=== PATIENT | female | born 1985 | race Caucasian/White ===

== ENCOUNTER 2016-08-11 00:31 | Emergency (ER) | payer SELFPAY ==
[~2016-08-11] VITALS: Ht 172.7 cm; Wt 71.0 kg
[2016-08-11 00:45] VITALS: BP 125/85; PULSE 85; RESP 16; O2SAT 100
== END 2016-08-11 01:30 | disposition left against medical advice (07) ==
LOC: NED 00:31
DX: M25.551 Pain in right hip (principal)
CPT/HCPCS: 99281

== ENCOUNTER 2016-09-19 18:48 | Emergency (ER) | payer SELFPAY ==
[~2016-09-19] VITALS: Ht 172.7 cm; Wt 70.5 kg
[2016-09-19 18:49] VITALS: BP 119/72; PULSE 106; RESP 15; TEMP 98.2; O2SAT 98
[2016-09-19 19:23] VITALS: TEMP 98.4
[2016-09-19] MEDS ORDERED: CLINDAMYCIN 150 MG CAP PO ONE (19:30)
[2016-09-19] MEDS ORDERED: CLIN1CAP5 PO (19:32)
--- NOTE | 2016-09-19 19:34 | PD ---
HPI Chief Complaint: Skin Problem Time Seen by Provider: 19:28 Travel History International Travel<30 days: No Contact w/Intl Traveler<30days: No Traveled to known affect area: No History of Present Illness HPI 30-year-old female presents to the emergency department for medical clearance from [facility]. Patient reports being IV drug user for 2.5-3 years. She states uses IV heroin and cocaine. Patient states that she started with some erythema to the right arm yesterday that has been worsening. She denies any fevers or chills. She has no chronic medical problems and takes no prescribed medications. No chest pain. PFSH Past Medical History ?: Not Past Surgical History Other Surgery: Yes (wisdom teeth removed) Social History Alcohol Use: Yes (daily beer) Tobacco Use: Yes (1ppd) Substance Use: Yes (cocaine and heroin iv drug use) Allergies-Medications (Allergen,Severity, Reaction): Coded Allergies: No Known Allergies (Unverified , 09/19/16) Reported Meds & Prescriptions Reported Meds & Active Scripts Active No Active Prescriptions or Reported Medications Review of Systems Except as stated in HPI: all other systems reviewed are Neg Physical Exam Narrative GENERAL: Well-developed well-nourished female patient, ambulatory. Afebrile. SKIN: Warm and dry. Patient has multiple scabs noted to the right upper extremity. She has erythema on the right for the patient is approximately 16 cm x 6 cm. No fluctuance or evidence of abscess formation. No edema of the right arm noted. HEAD: Normocephalic. Atraumatic. EYES: No scleral icterus. No injection or drainage. NECK: Supple, trachea midline. No JVD or lymphadenopathy. CARDIOVASCULAR: Regular rate and rhythm without murmurs, gallops, or rubs. RESPIRATORY: Breath sounds equal bilaterally. No accessory muscle use. Lungs sounds are clear to auscultation. GASTROINTESTINAL: Abdomen soft, non-tender, nondistended. MUSCULOSKELETAL: No cyanosis. BACK: Nontender without obvious deformity. No CVA tenderness. Data Data Last Documented VS Vital Signs Date Time Temp Pulse Resp B/P Pulse Ox O2 Delivery O2 Flow Rate FiO2 09/19/16 19:23 98.4 09/19/16 18:49 106 15 119/72 98 Orders Clindamycin (Cleocin) (09/19/16 19:30) [facility] Medical Decision Making Medical Screen Exam Complete: Yes Emergency Medical Condition: Yes Medical Record Reviewed: Yes Differential Diagnosis Cellulitis versus abscess versus IV drug use Narrative Course 30-year-old female presents to the emergency department for medical clearance from [facility]. She reports redness to the right upper extremity that started yesterday after IV drug use. Physical exam reveals an approximately 16 cm x 6 cm area of erythema to the right anterior forearm with no evidence of abscess formation. She is afebrile and appears well on exam. The patient will be started on clindamycin and discharged with a prescription for clindamycin. She is instructed to monitor closely and if the erythema spreads, she has fevers , or any other worsening symptoms, she is to return immediately to the emergency department. The patient verbalizes agreement and understanding. Diagnosis Primary Impression: Cellulitis of right upper extremity Additional Impression: IV drug abuse Referrals: Primary Care Physician [facility] Patient Instructions: Cellulitis (ED), General Instructions Additional Instructions: Take antibiotic as directed until gone. If you do not have insurance, this is cheapest at [facility]. Clean right arm twice daily with soap and water. Follow up with your primary care physician. Return to the emergency department immediately if you notice any worsening redness, fevers, abscess formation. Med/Other Pt SpecificInfo: Prescription(s) given Scripts Clindamycin 150 Mg [id number] Mg PO Q6H 10 Days Ref 0 Prov:Uzma Patel 09/19/16 Disposition: 01 DISCHARGE HOME Condition: Stable Uzma Patel Sep 19, 2016 19:34
== END 2016-09-19 19:53 | disposition home or self-care (01) ==
LOC: NEPC 18:48
DX: L03.113 Cellulitis of right upper limb (principal); F19.10 Other psychoactive substance abuse, uncomplicated; F17.200 Nicotine dependence, unspecified, uncomplicated
CPT/HCPCS: 99283

== ENCOUNTER 2016-09-21 12:24 | Inpatient (IN) | payer SELFPAY ==
[2016-09-21] VITALS (7 sets, daily range): BP systolic 106–116; BP diastolic 55–66; PULSE 78–96; RESP 16–20; TEMP 98.3–100.4; O2SAT 96–98
[~2016-09-21] VITALS: Ht 172.7 cm; Wt 72.8 kg
[~2016-09-21 12:24] MED LIST: CLIN1CAP5 PO
[2016-09-21] MEDS ORDERED: PIPERACIL-TAZO 3.375 GM PREMIX 50 ML IV ONE (12:45)
[2016-09-21] MEDS ORDERED: VANCOMYCIN INJ 1,000 MG in SODIUM CHLOR 0.9% 250 ML INJ 250 ML IV ONE (12:45)
[2016-09-21] MEDS ORDERED: KETOROLAC TROMETHAMINE 30 MG/ML (IVP) VIAL IV PUSH ONE (12:45)
--- NOTE | 2016-09-21 13:00 | PD ---
HPI Chief Complaint: cellulitis Time Seen by Provider: 12:32 Travel History International Travel<30 days: No Contact w/Intl Traveler<30days: No Traveled to known affect area: No History of Present Illness HPI 30-year-old female complaining of pain swelling right arm. Patient has history of IV drug abuse. Patient has been shooting up cocaine or heroin. Last IV drug abuse was 2 days ago. Patient started having redness swelling with pain in the right arm 4 days ago and the symptoms get worse for the past 2 days. Patient was seen in emergency room 2 days ago and given prescription for clindamycin. Patient has been taking that as directed. Patient was admitted to [facility] and was given Septra DS and Keflex addition to clindamycin. Patient however has persistent fever and increasing pain and swelling of the right arm and was transferred to [place] for evaluation. [facility] Past Surgical History Other Surgery: Yes (wisdom teeth removed) Social History Alcohol Use: Yes (daily beer) Tobacco Use: Yes (1ppd) Substance Use: Yes (cocaine and heroin iv drug use) Allergies-Medications (Allergen,Severity, Reaction): Coded Allergies: No Known Allergies (Unverified , 09/19/16) Reported Meds & Prescriptions Reported Meds & Active Scripts Active Clindamycin (Clindamycin HCl) 150 Mg Cap 300 Mg PO Q6H 10 Days Review of Systems General / Constitutional: No: Fever Eyes: No: Visual changes HENT: No: Headaches Cardiovascular: No: Chest Pain or Discomfort Respiratory: No: Shortness of Breath Gastrointestinal: No: Abdominal Pain Genitourinary: No: Dysuria Musculoskeletal: Positive: Pain Skin: No Rash Neurologic: No: Weakness Psychiatric: No: Depression Endocrine: No: Polydipsia Hematologic/Lymphatic: No: Easy Bruising Physical Exam Narrative GENERAL: Well-nourished, well-developed patient. SKIN: Warm and dry. HEAD: Normocephalic. EYES: No scleral icterus. No injection or drainage. NECK: Supple, trachea midline. No JVD or lymphadenopathy. CARDIOVASCULAR: Regular rate and rhythm without murmurs, gallops, or rubs. RESPIRATORY: Breath sounds equal bilaterally. No accessory muscle use. GASTROINTESTINAL: Abdomen soft, non-tender, nondistended. MUSCULOSKELETAL: Patient has diffuse redness swelling tenderness right arm and antecubital area and forearm. Questionable induration antecubital area. Infected lesion dorsal aspect right hand. BACK: Nontender without obvious deformity. No CVA tenderness. Neurologic exam: Patient's awake and alert oriented 3. No obvious focal neurological deficit. Data Data Last Documented VS Vital Signs Date Time Temp Pulse Resp B/P Pulse Ox O2 Delivery O2 Flow Rate FiO2 09/21/16 12:50 100.4 95 20 106/58 98 Room Air Orders Consult Vascular Access Team (09/21/16 ) Electrocardiogram (09/21/16 12:44) Complete Blood Count With Diff (09/21/16 12:44) Comprehensive Metabolic Panel (09/21/16 12:44) Prothrombin Time / Inr (Pt) (09/21/16 12:44) Act Partial Throm Time (Ptt) (09/21/16 12:44) Blood Culture (09/21/16 12:44) Urinalysis - C+S If Indicated (09/21/16 12:44) Chest, Single Ap (09/21/16 12:44) Iv Access Insert/Monitor (09/21/16 12:44) Ecg Monitoring (09/21/16 12:44) Oximetry (09/21/16 12:44) Drug Screen, Random Urine (09/21/16 12:44) Ed Urine Pregnancytest Poc (09/21/16 12:44) Sodium Chlor 0.9% 1000 Ml Inj (Ns 1000 M (09/21/16 12:45) Vancomycin Inj (Vancomycin Inj) (09/21/16 12:45) Piperacil-Tazo 3.375 Gm Premix (Zosyn 3. (09/21/16 12:45) Ketorolac Inj (Toradol Inj) (09/21/16 12:45) Lactic Acid (09/21/16 12:48) Us Arm Soft Tissue (09/21/16 ) Vascular Poc Ultrasound (09/21/16 ) Labs Laboratory Tests Test 09/21/16 09/21/16 13:15 13:30 Lactic Acid Level 0.8 mmol/L White Blood Count 18.7 TH/MM3 Red Blood Count 4.21 MIL/MM3 Hemoglobin 11.7 GM/DL Hematocrit 35.6 % Mean Corpuscular Volume 84.6 FL Mean Corpuscular Hemoglobin 27.8 PG Mean Corpuscular Hemoglobin 32.8 % Concent Red Cell Distribution Width 15.9 % Platelet Count 353 TH/MM3 Mean Platelet Volume 7.8 FL Neutrophils (%) (Auto) 79.9 % Lymphocytes (%) (Auto) 13.7 % Monocytes (%) (Auto) 5.8 % Eosinophils (%) (Auto) 0.0 % Basophils (%) (Auto) 0.6 % Neutrophils # (Auto) 14.9 TH/MM3 Lymphocytes # (Auto) 2.6 TH/MM3 Monocytes # (Auto) 1.1 TH/MM3 Eosinophils # (Auto) 0.0 TH/MM3 Basophils # (Auto) 0.1 TH/MM3 CBC Comment DIFF FINAL Differential Comment Prothrombin Time 13.0 SEC Prothromb Time International 1.2 RATIO Ratio Activated Partial 33.5 SEC Thromboplast Time Sodium Level 140 MEQ/L Potassium Level 3.5 MEQ/L Chloride Level 107 MEQ/L Carbon Dioxide Level 24.2 MEQ/L Anion Gap 9 MEQ/L Blood Urea Nitrogen 8 MG/DL Creatinine 0.78 MG/DL Estimat Glomerular Filtration 87 ML/MIN Rate Random Glucose 104 MG/DL Calcium Level 8.9 MG/DL Total Bilirubin 0.4 MG/DL Aspartate Amino Transf 17 U/L (AST/SGOT) Alanine Aminotransferase 27 U/L (ALT/SGPT) Alkaline Phosphatase 101 U/L Total Protein 7.5 GM/DL Albumin 2.7 GM/DL [facility] Medical Decision Making Medical Screen Exam Complete: Yes Emergency Medical Condition: Yes Medical Record Reviewed: Yes Interpretation(s) Last Impressions Chest X-Ray 09/21/16 1244 Signed Impressions: Service Date/Time: Wednesday, September 21, 2016 13:24 - CONCLUSION: Normal examination. Zack Corea Jr., MD Upper Extremity Ultrasound 09/21/16 0000 Signed Impressions: Service Date/Time: Wednesday, September 21, 2016 13:31 - CONCLUSION: Small 1 cm complex fluid collection hypoechoic right anterior midforearm contiguous with open skin wound. Extensive surrounding edema and hypervascularity Jerzy Handy MD 1409 p.m. CBC with WBC 18,000. 79 neutrophil. Differential Diagnosis Differential diagnosis including cellulitis, abscess. Narrative Course 30-year-old female with redness swelling tenderness right arm. History IV drug abuse. Patient has been taking clindamycin 300 mg, Bactrim DS and Keflex 500 mg without much relief. Vancomycin 1 g IV. Zosyn 3.375 g IV. Toradol 30 mg IV. Diagnosis Primary Impression: Right arm cellulitis Additional Impressions: Abscess of right arm IV drug abuse Failure of outpatient treatment Admitting Information Admitting Physician Requests: Admit George Nino MD Sep 21, 2016 13:00
--- NOTE | 2016-09-21 13:41 | RADRPT ---
EXAM DATE/TIME: 09/21/2016 13:24 [facility] COMPARISON: No previous studies available for comparison. INDICATIONS : Fever for three days, abdominal pain, short of breath. MEDICAL HISTORY : None. SURGICAL HISTORY : None. ENCOUNTER: Initial ACUITY: 3 days PAIN SCORE: Non-responsive. LOCATION: Bilateral chest FINDINGS: A single view of the chest demonstrates the lungs to be symmetrically aerated without evidence of mas s, infiltrate or effusion. The cardiomediastinal contours are unremarkable. Osseous structures are intact. CONCLUSION: Normal examination. Zack Corea Jr., MD on September 21, 2016 at 13:39 Board Certified Radiologist. This report was verified electronically.
--- NOTE | 2016-09-21 14:00 | RADRPT ---
EXAM DATE/TIME: 09/21/2016 13:31 [facility] COMPARISON: No previous studies available for comparison. INDICATIONS : Right arm abscess. MEDICAL HISTORY : IV drug use. Anxiety. SURGICAL HISTORY : [place] teeth removed. ENCOUNTER: Initial ACUITY: 2 days PAIN SCORE: 3/10 LOCATION: Right arm. AREA EVALUATED: Right anterior mid forearm. FINDINGS: There is a small 1.0 cm hypoechoic complex fluid collection right anterior midforearm which is contig uous with an open skin wound. Surrounding edema is noted in the soft tissues with a hypervascular inc reased CONCLUSION: Small 1 cm complex fluid collection hypoechoic right anterior midforearm contiguous with open skin wo und. Extensive surrounding edema and hypervascularity Jerzy Handy MD on September 21, 2016 at 13:57 Board Certified Radiologist. This report was verified electronically.
[2016-09-21 14:04] LABS: AUTOMATED NEUTROPHIL # 14.9 TH/MM3 (1.8-7.7); BASOPHIL # 0.1 TH/MM3 (0-0.2); BASOPHIL % 0.6 % (0.0-2.0); HEMATOCRIT 35.6 % (35.0-46.0); HEMO FLAGS DIFF FINAL; LYMPH % 13.7 % (9.0-44.0); LYMPHOCYTE # 2.6 TH/MM3 (1.0-4.8); MEAN CELL VOLUME 84.6 FL (80.0-100.0); MEAN CORPUSCULAR HEMOGLOBIN 27.8 PG (27.0-34.0); MEAN CORPUSCULAR HGB CONC 32.8 % (32.0-36.0); MONO % 5.8 % (0.0-8.0); NEUT % 79.9 % (16.0-70.0); PLATELET COUNT 353 TH/MM3 (150-450); RED BLOOD COUNT 4.21 MIL/MM3 (4.00-5.30); RED CELL DISTRIBUTION WIDTH 15.9 % (11.6-17.2); WHITE BLOOD COUNT 18.7 TH/MM3 (4.0-11.0)
[2016-09-21 14:20] LABS: ALT (GPT) 27 U/L (10-53); ANION GAP 9 MEQ/L (5-15); APTT (PATIENT) 33.5 SEC (24.3-30.1); AST (GOT) 17 U/L (15-37); BICARBONATE 24.2 MEQ/L (21.0-32.0); BLOOD UREA NITROGEN 8 MG/DL (7-18); CHLORIDE 107 MEQ/L (98-107); GLOMERULAR FILTRATION RATE 87 ML/MIN (>89); INTERNATIONAL NORMALIZED RATIO 1.2 RATIO; POTASSIUM 3.5 MEQ/L (3.5-5.1); SODIUM (NA) 140 MEQ/L (136-145)
[2016-09-21 14:22] LABS: ALKALINE PHOSPHATASE 101 U/L (45-117); TOTAL BILIRUBIN ADULT 0.4 MG/DL (0.2-1.0)
[2016-09-21] MEDS: SODIUM CHLOR 0.9% 1000 ML INJ 1,000 ML IV SCH ×2 (14:45→21:56)
--- NOTE | 2016-09-21 14:49 | HHI.HP ---
[facility] Primary Care Physician No Primary Care Physician Admission Diagnosis right arm cellulitis. Right arm abscess. Diagnoses: (1) Abscess of right arm (2) Right arm cellulitis (3) IV drug abuse (4) Failure of outpatient treatment Chief Complaint: Cellulitis Travel History International Travel<30 Days: No Contact w/Intl Traveler <30 Da: No Traveled to Known Affected Are: No Sepsis Criteria SIRS Criteria (2 or more): Heart rate over 90, WBC > 10075, < 4000 or > 10% bands Sepsis Criteria (SIRS+source): Infect source susp/known History of Present Illness The patient is a 30-year-old female with history of IV drug abuse who presented to the emergency department from [facility] for further evaluation and treatment of cellulitis and possible abscess of her right forearm. She admits to using heroin most recently on Wednesday. On the same day she voluntarily was admitted to [facility]. She was seen in the ER 2 days ago and given clindamycin for the cellulitis. Bactrim and Keflex were added at [facility]. She has not had any improvement in the pain or erythema of the right forearm. She states that she feels "terrible". She is currently going through withdrawal from opiates. Review of Systems Constitutional: COMPLAINS OF: Fever, Chills, Night Sweats Eyes: DENIES: Blurred vision, Vision loss Ears, nose, mouth, throat: DENIES: Hearing loss Respiratory: DENIES: Cough, Wheezing, Sputum production, Shortness of breath Cardiovascular: DENIES: Chest pain, Palpitations, Dyspnea on Exertion, Lower Extremity Edema Gastrointestinal: DENIES: Abdominal pain, Constipation, Diarrhea, Nausea, Vomiting Genitourinary: DENIES: Urinary frequency, Urinary incontinence, Urgency, Hematuria, Dysuria, Nocturia Musculoskeletal: DENIES: Joint pain, Muscle aches Integumentary: DENIES: Pruritus, Rash Hematologic/lymphatic: DENIES: Bruising Neurologic: DENIES: Headache Past Family Social History Past Medical History IV drug abuse Past Surgical History [place] teeth removed Reported Medications Clindamycin Bactrim Keflex Allergies: Coded Allergies: No Known Allergies (Unverified , 09/19/16) Family History Parkinson's disease Alzheimer's disease Social History Patient drinks beer daily. Smokes 1ppd. Admits to cocaine and heroin abuse. Physical Exam Vital Signs Vital Signs Date Time Temp Pulse Resp B/P Pulse Ox O2 Delivery O2 Flow Rate FiO2 09/21/16 12:50 100.4 95 20 106/58 98 Room Air 09/21/16 12:50 100.4 95 20 106/58 98 Room Air 09/21/16 12:50 95 20 09/21/16 12:41 100.4 20 Physical Exam GENERAL: Well-nourished, well-developed female in no acute distress. HEENT: Normocephalic, atraumatic. Pupils equal, round and reactive. Extraocular movements intact. No scleral icterus. No injection or drainage. Oropharynx is clear. Mucous membranes are moist. CARDIOVASCULAR: Regular rate and rhythm without murmurs, gallops, or rubs. RESPIRATORY: Clear to auscultation. No wheezes, rales, or rhonchi. Breathing is non-labored. GASTROINTESTINAL: Abdomen soft, non-tender, nondistended. EXTREMITIES: No lower extremity edema. No calf tenderness. Right forearm with erythema extending from the elbow to just proximal to the wrist. There is a scabbed lesion with surrounding induration and erythema. PSYCH: Alert and oriented x 3. Laboratory Laboratory Tests Test 09/21/16 09/21/16 13:15 13:30 Lactic Acid Level 0.8 White Blood Count 18.7 Red Blood Count 4.21 Hemoglobin 11.7 Hematocrit 35.6 Mean Corpuscular Volume 84.6 Mean Corpuscular Hemoglobin 27.8 Mean Corpuscular Hemoglobin 32.8 Concent Red Cell Distribution Width 15.9 Platelet Count 353 Mean Platelet Volume 7.8 Neutrophils (%) (Auto) 79.9 Lymphocytes (%) (Auto) 13.7 Monocytes (%) (Auto) 5.8 Eosinophils (%) (Auto) 0.0 Basophils (%) (Auto) 0.6 Neutrophils # (Auto) 14.9 Lymphocytes # (Auto) 2.6 Monocytes # (Auto) 1.1 Eosinophils # (Auto) 0.0 Basophils # (Auto) 0.1 CBC Comment DIFF FINAL Differential Comment Prothrombin Time 13.0 Prothromb Time International 1.2 Ratio Activated Partial 33.5 Thromboplast Time Sodium Level 140 Potassium Level 3.5 Chloride Level 107 Carbon Dioxide Level 24.2 Anion Gap 9 Blood Urea Nitrogen 8 Creatinine 0.78 Estimat Glomerular Filtration 87 Rate Random Glucose 104 Calcium Level 8.9 Total Bilirubin 0.4 Aspartate Amino Transf 17 (AST/SGOT) Alanine Aminotransferase 27 (ALT/SGPT) Alkaline Phosphatase 101 Total Protein 7.5 Albumin 2.7 Date/Time Procedure Status Source Growth 09/21/16 13:30 Aerobic Blood Culture Received Blood Peripheral Pending 09/21/16 13:30 Anaerobic Blood Culture Received Blood Peripheral Pending Result Diagram: 09/21/16 1330 09/21/16 1330 Imaging Last Impressions Chest X-Ray 09/21/16 1244 Signed Impressions: Service Date/Time: Wednesday, September 21, 2016 13:24 - CONCLUSION: Normal examination. Zack Corea Jr., MD Upper Extremity Ultrasound 09/21/16 0000 Signed Impressions: Service Date/Time: Wednesday, September 21, 2016 13:31 - CONCLUSION: Small 1 cm complex fluid collection hypoechoic right anterior midforearm contiguous with open skin wound. Extensive surrounding edema and hypervascularity Jerzy Handy MD Assessment and Plan Assessment and Plan 1. Cellulitis/abscess, right arm: Failed outpatient therapy. Patient was given clindamycin in the ER 2 days ago. Bactrim and Keflex were added at [facility]. Continue vancomycin, Zosyn. Consult infectious disease. Consider hand surgery consult if abscess appears to be worsening. 2. IV drug abuse: Patient has been counseled. Monitor for withdrawal symptoms. 3. DVT prophylaxis: SCDs, BOOM hollise. 4. Sepsis: Secondary to cellulitis. Patient presented with fever, tachycardia, leukocytosis. Continue antibiotics as above. Maxi Streeter MD Sep 21, 2016 14:49
[2016-09-21] MEDS ORDERED: Vancomycin Consult Pharmacy 1 EA OTHER SCH (15:15)
[2016-09-21] MEDS ORDERED: NALOXONE HCL 0.4 MG/ML AMP IV PRN (15:15)
[2016-09-21] MEDS ORDERED: SODIUM CHLORIDE 0.9% FLUSH 5 ML FLUSH FLUSH PRN (15:15)
[2016-09-21] MEDS: PIPERACIL-TAZO 3.375 GM PREMIX 50 ML IV SCH (20:49)
[2016-09-21] MEDS: SODIUM CHLORIDE 0.9% FLUSH 5 ML FLUSH FLUSH SCH (20:50)
[2016-09-21] MEDS ORDERED: THIAMINE HCL 100 MG TAB PO ONE (21:45)
[2016-09-21] MEDS: ACETAMINOPHEN 325 MG TAB PO PRN (22:05)
[2016-09-21 22:16] LABS: AMPHETAMINE, URINE NEG (NEG); BARBITURATES, URINE NEG (NEG); COCAINE, URINE POS (NEG)
[2016-09-21 22:26] LABS: BACTERIA, URINE MOD /hpf; BLOOD, URINE NEG (NEG); COMMENT (UR) CULTURE INDICATED; CULTURE IF INDICATED CULTURE INDICATED; GLUCOSE,URINE NEG (NEG); KETONE, URINE NEG (NEG); MUCUS URINE FEW /lpf (OCC); NITRITE,URINE NEG (NEG); SQUAMOUS EPITHELIAL CELL URINE 7 /hpf (0-5); URINE COLOR YELLOW (YELLW/STRAW)
[2016-09-21] MEDS: LORazepam 2 MG/ML VIAL IV PUSH PRN (22:52)
[2016-09-22] MEDS: PIPERACIL-TAZO 3.375 GM PREMIX 50 ML IV SCH ×4 (02:13→21:38)
[2016-09-22] MEDS: VANCOMYCIN INJ 1,250 MG in SODIUM CHLOR 0.9% 250 ML INJ 250 ML IV SCH ×2 (03:00→15:03)
[2016-09-22 04:05] VITALS: BP 109/64; PULSE 77; RESP 16; TEMP 98.9; O2SAT 98
[2016-09-22] MEDS: SODIUM CHLOR 0.9% 1000 ML INJ 1,000 ML IV SCH ×3 (04:36→20:45)
[2016-09-22] MEDS: LORazepam 2 MG/ML VIAL IV PUSH PRN ×5 (05:30→23:01)
[2016-09-22 07:21] LABS: AUTOMATED NEUTROPHIL # 10.5 TH/MM3 (1.8-7.7); BASOPHIL % 0.2 % (0.0-2.0); EOSINOPHIL % 0.2 % (0.0-4.0); HEMATOCRIT 32.3 % (35.0-46.0); HEMO FLAGS DIFF FINAL; LYMPH % 22.1 % (9.0-44.0); LYMPHOCYTE # 3.3 TH/MM3 (1.0-4.8); MEAN CELL VOLUME 84.8 FL (80.0-100.0); MONO % 8.3 % (0.0-8.0); NEUT % 69.2 % (16.0-70.0); PLATELET COUNT 313 TH/MM3 (150-450); RED BLOOD COUNT 3.81 MIL/MM3 (4.00-5.30); RED CELL DISTRIBUTION WIDTH 15.8 % (11.6-17.2); WHITE BLOOD COUNT 15.2 TH/MM3 (4.0-11.0)
[2016-09-22] MEDS ORDERED: FLUMAZENIL 0.5 MG/5 ML VIAL IV PUSH PRN (07:30)
[2016-09-22] MEDS ORDERED: LORazepam 2 MG/ML VIAL IV PUSH PRN ×3 (07:30)
[2016-09-22 08:00] VITALS: BP 128/67; PULSE 86; RESP 32; TEMP 99.9; O2SAT 97
[2016-09-22] MEDS: SODIUM CHLORIDE 0.9% FLUSH 5 ML FLUSH FLUSH SCH ×2 (08:24→21:00)
[2016-09-22] MEDS: THIAMINE HCL 100 MG TAB PO SCH (08:24)
[2016-09-22] MEDS: ACETAMINOPHEN 325 MG TAB PO PRN ×2 (08:42→16:24)
[2016-09-22] MEDS ORDERED: chlordiazePOXIDE 25 MG CAP PO SCH (09:00)
--- NOTE | 2016-09-22 10:46 | HHI.PR ---
Subjective Remarks Follow-up cellulitis/abscess, sepsis. The patient continues to have significant pain and swelling in the right arm. No other complaints at this time. Objective Vitals Vital Signs Date Time Temp Pulse Resp B/P Pulse Ox O2 Delivery O2 Flow Rate FiO2 09/22/16 10:09 Room Air 09/22/16 08:00 99.9 86 32 128/67 97 09/22/16 04:05 Room Air 09/22/16 04:05 98.9 77 16 109/64 98 09/21/16 23:20 99.6 85 16 116/64 96 09/21/16 23:20 Room Air 09/21/16 21:17 99.9 96 16 107/55 98 09/21/16 21:17 Room Air 09/21/16 17:41 98.8 80 20 112/64 98 09/21/16 16:25 98.3 78 20 114/66 98 Room Air 09/21/16 15:00 20 09/21/16 14:45 99.5 09/21/16 12:50 100.4 95 20 106/58 98 Room Air 09/21/16 12:50 100.4 95 20 106/58 98 Room Air 09/21/16 12:50 95 20 09/21/16 12:41 100.4 20 I/O 09/21/16 09/21/16 09/21/16 09/22/16 09/22/16 09/22/16 07:00 15:00 23:00 07:00 15:00 23:00 Intake Total 480 ml 1228 ml Balance 480 ml 1228 ml Intake Oral 480 ml 240 ml IV Total 988 ml # Voids 1 2 # Bowel Movements 0 0 Result Diagram: 09/22/16 0648 09/22/16 0648 Imaging Last Impressions Chest X-Ray 09/21/16 1244 Signed Impressions: Service Date/Time: Wednesday, September 21, 2016 13:24 - CONCLUSION: Normal examination. Zack Corea Jr., MD Upper Extremity Ultrasound 09/21/16 0000 Signed Impressions: Service Date/Time: Wednesday, September 21, 2016 13:31 - CONCLUSION: Small 1 cm complex fluid collection hypoechoic right anterior midforearm contiguous with open skin wound. Extensive surrounding edema and hypervascularity Jerzy Handy MD Objective Remarks General: No acute distress. Heart: Regular rate and rhythm. No murmur. Lungs: Clear to auscultation bilaterally. No wheezes, rales, or rhonchi. Breathing is nonlabored. Abdomen: Soft, nontender, nondistended. Extremities: No lower extremity edema. BOOM samaniego. There is swelling, erythema, and induration of the right forearm. Psych: Sleeping, but awakens and answers questions. Procedures None Urinary Catheter: No Vascular Central Line Catheter: No A/P Problem List: (1) Abscess of right arm ICD Code: L02.413 Status: Acute (2) Right arm cellulitis ICD Code: L03.113 Status: Acute (3) IV drug abuse ICD Code: F19.10 Status: Chronic (4) Failure of outpatient treatment ICD Code: Z78.9 Status: Acute Assessment and Plan 1. Cellulitis/abscess, right arm: Failed outpatient therapy. Patient was given clindamycin in the ER 2 days ago. Bactrim and Keflex were added at [facility]. Continue vancomycin, Zosyn. Appreciate infectious disease recommendations. Check MRI to further evaluate abscess. Consider hand surgery consult if abscess appears to be worsening. 2. IV drug abuse, alcohol abuse: Patient has been counseled. Monitor for withdrawal symptoms. CIWA protocol. Withdrawal precautions. Thiamine. 3. Sepsis: Secondary to cellulitis. Patient presented with fever, tachycardia, leukocytosis. Continue antibiotics as above. 4. Leukocytosis: WBCs are trending down. 5. DVT prophylaxis: SCDBOOM cordova. Discussed with Dr. Canseco. Maxi Streeter MD Sep 22, 2016 10:46
--- NOTE | 2016-09-22 11:01 | PD.CONS ---
History of Present Illness Service Infectious disease Consult Requested By Dr Dorene Streeter Reason for Consult Evaluate patient with cellulitis R forearm, hx IVDU Primary Care Physician No Primary Care Physician Diagnoses: History of Present Illness Patient seen and examined. Records reviewed. Patient is a 30-year-old female with history of IV drug abuse who presented to the emergency department from [facility] for further evaluation of pain and redness in her R forearm. She last used IVDU in her R forearm 3 days [employer]. She developed redness, pain and swelling, went to the ED 09/19 and diagnosed to have cellulitis. She then went to [facility] voluntarily and continued on her antibiotics. She was not improving, and presented to the emergency room and patient has been admitted. Patient has been febrile. She had a white count of 18,000. One out of 2 blood cultures done on admission are now reported as growing gram-positive cocci in pairs and chains. Patient had some mild sore throat last week but that has resolved. She denies any significant cough, shortness of breath or chest pain. Has not had any nausea or vomiting, abdominal pain, diarrhea or any urinary complaint. Infectious disease consultation is requested to evaluate the patient. Review of Systems Constitutional: COMPLAINS OF: Fever Eyes: DENIES: Eye pain Ears, nose, mouth, throat: DENIES: Nasal discharge, Oral lesions, Throat pain, Ear Pain, Sinus Pain Respiratory: DENIES: Cough, Sputum production, Shortness of breath Cardiovascular: DENIES: Chest pain, Palpitations, Syncope Gastrointestinal: DENIES: Abdominal pain, Diarrhea, Nausea, Vomiting, Difficulty Swallowing Genitourinary: DENIES: Urinary frequency, Dysuria Musculoskeletal: COMPLAINS OF: Muscle aches, DENIES: Joint pain, Joint Swelling Hematologic/lymphatic: DENIES: Bruising Immunologic/allergic: DENIES: Urticaria Neurologic: DENIES: Headache, Localized weakness Psychiatric: DENIES: Hallucinations Past Family Social History Allergies: Coded Allergies: No Known Allergies (Unverified , 09/19/16) Past Medical History History of IV drug use Past Surgical History [place] tooth extraction Active Ordered Medications Tylenol Flumazenil Ativan Vancomycin Zosyn Zofran Thiamine Social History Has a boyfriend, shares needles with the boyfriend Patient drinks beer daily. Smokes 1ppd. Admits to cocaine and heroin abuse. Physical Exam Vital Signs Vital Signs Date Time Temp Pulse Resp B/P Pulse Ox O2 Delivery O2 Flow Rate FiO2 09/22/16 10:09 Room Air 09/22/16 08:00 99.9 86 32 128/67 97 09/22/16 04:05 Room Air 09/22/16 04:05 98.9 77 16 109/64 98 09/21/16 23:20 99.6 85 16 116/64 96 09/21/16 23:20 Room Air 09/21/16 21:17 99.9 96 16 107/55 98 09/21/16 21:17 Room Air 09/21/16 17:41 98.8 80 20 112/64 98 09/21/16 16:25 98.3 78 20 114/66 98 Room Air 09/21/16 15:00 20 09/21/16 14:45 99.5 09/21/16 12:50 100.4 95 20 106/58 98 Room Air 09/21/16 12:50 100.4 95 20 106/58 98 Room Air 09/21/16 12:50 95 20 09/21/16 12:41 100.4 20 Physical Exam GENERAL: This is a well-nourished, well-developed female, awake and alert, in no apparent distress. SKIN: Cool and dry. Has track hill both UE. Has excoriations in her face HEAD: Atraumatic. Normocephalic. No temporal or scalp tenderness. EYES: [place] conjunctivae, no petechia or hemorrhage. Pupils equal round and reactive. Extraocular motions intact. No scleral icterus. No injection or drainage. ENT: Nose without bleeding, or purulent drainage. Moist oral mucosa. Throat without erythema, or exudate. Uvula midline. Airway patent. NECK: Trachea midline. No JVD or lymphadenopathy. Supple, nontender, no meningeal signs. CARDIOVASCULAR: Regular rate and rhythm without murmurs, gallops, or rubs. RESPIRATORY: Clear to auscultation. Breath sounds equal bilaterally. No wheezes , rales, or rhonchi. GASTROINTESTINAL: Abdomen soft, non-tender, nondistended. No hepato-splenomegaly , or palpable masses. No guarding. MUSCULOSKELETAL: Lower extremities without clubbing, cyanosis, or edema. No joint tenderness, effusion, or edema noted. No calf tenderness. Negative Homans sign bilaterally. RUE - has an area of erythema distal to antecub fossa, possibly a tender palpable cord, no fluctuance NEUROLOGICAL: Awake and alert. Cranial nerves II through XII intact. Motor and sensory grossly within normal limits. Five out of 5 muscle strength in all muscle groups. Normal speech. PSYCH: Cooperative LINE: PIV with no evidence of infection Laboratory Laboratory Tests Test 09/21/16 09/21/16 09/21/16 09/22/16 13:15 13:30 21:30 06:48 Lactic Acid Level 0.8 White Blood Count 18.7 15.2 Red Blood Count 4.21 3.81 Hemoglobin 11.7 10.7 Hematocrit 35.6 32.3 Mean Corpuscular Volume 84.6 84.8 Mean Corpuscular Hemoglobin 27.8 28.0 Mean Corpuscular Hemoglobin 32.8 33.0 Concent Red Cell Distribution Width 15.9 15.8 Platelet Count 353 313 Mean Platelet Volume 7.8 7.5 Neutrophils (%) (Auto) 79.9 69.2 Lymphocytes (%) (Auto) 13.7 22.1 Monocytes (%) (Auto) 5.8 8.3 Eosinophils (%) (Auto) 0.0 0.2 Basophils (%) (Auto) 0.6 0.2 Neutrophils # (Auto) 14.9 10.5 Lymphocytes # (Auto) 2.6 3.3 Monocytes # (Auto) 1.1 1.3 Eosinophils # (Auto) 0.0 0.0 Basophils # (Auto) 0.1 0.0 CBC Comment DIFF FINAL DIFF FINAL Differential Comment Prothrombin Time 13.0 Prothromb Time International 1.2 Ratio Activated Partial 33.5 Thromboplast Time Sodium Level 140 Potassium Level 3.5 Chloride Level 107 Carbon Dioxide Level 24.2 Anion Gap 9 Blood Urea Nitrogen 8 Creatinine 0.78 0.84 Estimat Glomerular Filtration 87 80 Rate Random Glucose 104 Calcium Level 8.9 Total Bilirubin 0.4 Aspartate Amino Transf 17 (AST/SGOT) Alanine Aminotransferase 27 (ALT/SGPT) Alkaline Phosphatase 101 Total Protein 7.5 Albumin 2.7 Urine Color YELLOW Urine Turbidity HAZY Urine pH 6.0 Urine Specific [place] 1.008 Urine Protein NEG Urine Glucose (UA) NEG Urine Ketones NEG Urine Occult Blood NEG Urine Nitrite NEG Urine Bilirubin NEG Urine Urobilinogen LESS THAN 2.0 Urine Leukocyte Esterase NEG Urine RBC 1 Urine WBC 1 Urine Squamous Epithelial 7 Cells Urine Bacteria MOD Urine Mucus FEW Microscopic Urinalysis Comment CULTURE INDICATED Urine Opiates Screen POS Urine Barbiturates Screen NEG Urine Amphetamines Screen NEG Urine Benzodiazepines Screen NEG Urine Cocaine Screen POS Urine Cannabinoids Screen POS Date/Time Procedure Status Source Growth 09/21/16 21:30 Urine Culture Received Urine Clean Catch Pending 09/21/16 13:30 Aerobic Blood Culture - Preliminary Resulted Blood Peripheral Gram Positive Cocci 09/21/16 13:30 Anaerobic Blood Culture Resulted Blood Peripheral Pending 09/21/16 13:15 Aerobic Blood Culture Worksheet Blood Peripheral Pending 09/21/16 13:15 Anaerobic Blood Culture Worksheet Blood Peripheral Pending Result Diagram: 09/22/16 0648 09/22/16 0648 Imaging RADIOLOGY STUDIES/FILMS REVIEWED Chest X-Ray 09/21/16 1244 Signed Impressions: Service Date/Time: Wednesday, September 21, 2016 13:24 - CONCLUSION: Normal examination. Zack Corea Jr., MD Upper Extremity Ultrasound 09/21/16 0000 Signed Impressions: Service Date/Time: Wednesday, September 21, 2016 13:31 - CONCLUSION: Small 1 cm complex fluid collection hypoechoic right anterior midforearm contiguous with open skin wound. Extensive surrounding edema and hypervascularity Jerzy Handy MD Assessment and Plan Assessment and Plan IMPRESSION Sepsis present on admission, has GPC bacteremia - has fever, leukocytosis, tachycardia Cellulitis RUE, suspicious for suppurative phlebitis due to IVDU RECOMMENDATION MRI R forearm Continue Vanco and Zosyn Follow C/S and adjsut Abx Repeat BC to document extent of bacteremia May need surgery Monitor temps Monitor progress I will follow along with you Thank you for this consultation Discussed Condition With D/W Marva See MD Sep 22, 2016 11:01
[2016-09-22] MEDS: FOLIC ACID 1 MG TAB PO SCH (11:35)
[2016-09-22] MEDS: MULTIVITAMIN TAB PO SCH (11:36)
[2016-09-22 12:00] VITALS: BP 110/61; PULSE 74; RESP 20; TEMP 97.9; O2SAT 100
[2016-09-22 16:00] VITALS: BP 127/77; PULSE 65; RESP 18; TEMP 98.3; O2SAT 99
[2016-09-22] MEDS ORDERED: GADODIAMIDE PF 287 MG/ML 5 ML VIAL (for RAD MRI) IV ONE (16:01)
--- NOTE | 2016-09-22 16:31 | EKG ---
Date Performed: 09/21/2016 Time Performed: 13:02:36 PTAGE: 30 years EKG: Sinus rhythm INCOMPLETE RIGHT BUNDLE BRANCH BLOCK BORDERLINE ECG NO PREVIOUS TRACING DOCTOR: Francisco Javier Rooney Interpretating Date/Time 09/22/2016 16:30:35
--- NOTE | 2016-09-22 16:44 | RADRPT ---
EXAM DATE/TIME: 09/22/2016 15:28 [facility] COMPARISON: US ARM RIGHT, September 21, 2016, 13:31. INDICATIONS : Abscess. Right proximal forearm hodges and swelling post IV drug use. CONTRAST: 14 cc Omniscan (gadodiamide) IV MEDICAL HISTORY : None. SURGICAL HISTORY : [place] teeth removed ENCOUNTER: Subsequent ACUITY: 2 day PAIN SCORE: 7/10 LOCATION: Right proximal forearm TECHNIQUE: Multiplanar multisequence MRI examination of the forearm was performed with and without contrast. FINDINGS: There is relatively diffuse subcutaneous edema involving the visualized distal arm and forearm. The s ubcutaneous edema is most pronounced along the proximal anterior forearm. There is a blood vessel mary ng the radial aspect of the forearm that demonstrates enhancement of the wall but no internal enhance ment. This likely represents the cephalic vein. There is surrounding edema. Bone marrow signal is wit hin normal limits. In the superficial soft tissues there is focal edema and enhancement along the pos terior ulnar aspect of the distal forearm. This abnormal area measures approximately 13 x 9 mm. The m uscles of the forearm demonstrate normal signal intensity. No deep abscess is visualized. CONCLUSION: 1. There is enhancement of a vein along the radial aspect of the forearm, likely the cephalic vein. B ased on the appearance it is suspected to be thrombosed. This could be confirmed with upper extremity Doppler ultrasound. Given the surrounding edema it may represent a thrombophlebitis. 2. Relatively diffuse subcutaneous edema throughout the forearm most severe proximally. There is a fo uday area of edema and enhancement in the superficial subcutaneous tissues adjacent to the distal post erior ulna. This could represent a focal area of inflammation or infection. There are no findings to indicate osteomyelitis or deep abscess. Mark Connell MD on September 22, 2016 at 16:34 Board Certified Radiologist. This report was verified electronically.
[2016-09-22] MEDS: ONDANSETRON HCL 4 MG/2 ML VIAL IVP PRN (17:45)
[2016-09-22 20:50] VITALS: BP 138/87; PULSE 64; RESP 20; TEMP 95.5; O2SAT 99
[2016-09-22] MEDS ORDERED: KETOROLAC TROMETHAMINE 30 MG/ML (IVP) VIAL IV PUSH ONE (22:15)
[2016-09-22] MEDS ORDERED: POTASSIUM CHLORIDE 20 MEQ CONTROLLED RELEASE TAB PO ONE (22:15)
[2016-09-22] MEDS ORDERED: ONDANSETRON HCL 4 MG/2 ML VIAL IV PUSH ONE (22:15)
[2016-09-22 23:23] VITALS: BP 126/81; PULSE 56; RESP 16; TEMP 99.4; O2SAT 98
--- NOTE | 2016-09-23 00:47 | RADRPT ---
EXAM DATE/TIME: 09/22/2016 23:36 [facility] COMPARISON: No previous studies available for comparison. INDICATIONS : Right arm swelling. MEDICAL HISTORY : IVDU. Right arm swelling. Anxiety. Alcohol use. SURGICAL HISTORY : [place] teeth removed. ENCOUNTER: Initial ACUITY: 1 day PAIN SCORE: 5/10 LOCATION: Right arm FINDINGS: There is nonocclusive thrombus in the cephalic vein. There is spontaneous flow documented in the brachial, basilic, axillary, and subclavian veins. The v essels are compressible and augmentation response is documented. No filling defects are seen. The f low is phasic with respiration. Direction of flow in the jugular vein is caudal. CONCLUSION: 1. Nonocclusive thrombus in the cephalic vein. The remaining aspect of the right upper extremity veno us system is patent. Mark Maddox MD on September 23, 2016 at 0:45 Board Certified Radiologist. This report was verified electronically.
[2016-09-23] MEDS: PIPERACIL-TAZO 3.375 GM PREMIX 50 ML IV SCH ×4 (01:35→20:43)
[2016-09-23] MEDS: ONDANSETRON HCL 4 MG/2 ML VIAL IVP PRN (02:37)
[2016-09-23] MEDS: LORazepam 2 MG/ML VIAL IV PUSH PRN ×5 (02:37→20:42)
[2016-09-23] MEDS ORDERED: PHARMACY ORDERED LAB XX ONE (02:45)
[2016-09-23] MEDS: VANCOMYCIN INJ 1,250 MG in SODIUM CHLOR 0.9% 250 ML INJ 250 ML IV SCH (02:45)
[2016-09-23] MEDS ORDERED: TEMAZEPAM 15 MG CAP PO ONE (04:30)
[2016-09-23 04:35] VITALS: BP 138/84; PULSE 65; RESP 16; TEMP 98.8; O2SAT 98
[2016-09-23] MEDS: SODIUM CHLOR 0.9% 1000 ML INJ 1,000 ML IV SCH ×3 (04:45→20:45)
[2016-09-23 08:00] VITALS: BP 131/78; PULSE 62; RESP 20; TEMP 99.2; O2SAT 99
[2016-09-23] MEDS: MULTIVITAMIN TAB PO SCH (08:39)
[2016-09-23] MEDS: THIAMINE HCL 100 MG TAB PO SCH (08:39)
[2016-09-23] MEDS: FOLIC ACID 1 MG TAB PO SCH (08:39)
[2016-09-23] MEDS: SODIUM CHLORIDE 0.9% FLUSH 5 ML FLUSH FLUSH SCH ×2 (08:40→20:43)
[2016-09-23] MEDS: ACETAMINOPHEN 325 MG TAB PO PRN (08:52)
[2016-09-23 11:21] VITALS: BP 124/70; PULSE 56; RESP 24; TEMP 98.9; O2SAT 97
--- NOTE | 2016-09-23 11:24 | HHI.PR ---
Subjective Remarks Follow-up cellulitis/abscess, sepsis, withdrawal. Patient is sleeping, but awakens easily. Reports that she is still having pain in the right forearm. No other complaints at this time. Objective Vitals Vital Signs Date Time Temp Pulse Resp B/P Pulse Ox O2 Delivery O2 Flow Rate FiO2 09/23/16 10:18 Room Air 09/23/16 08:00 99.2 62 20 131/78 99 09/23/16 04:35 98.8 65 16 138/84 98 09/22/16 23:23 99.4 56 16 126/81 98 09/22/16 20:50 95.5 64 20 138/87 99 09/22/16 20:00 Room Air 09/22/16 16:00 98.3 65 18 127/77 99 09/22/16 12:00 97.9 74 20 110/61 100 I/O 09/22/16 09/22/16 09/22/16 09/23/16 09/23/16 09/23/16 07:00 15:00 23:00 07:00 15:00 23:00 Intake Total 1228 ml 720 ml 240 ml 2125 ml Balance 1228 ml 720 ml 240 ml 2125 ml Intake Oral 240 ml 720 ml 240 ml 480 ml IV Total 988 ml 1645 ml # Voids 2 0 3 3 # Bowel Movements 0 0 11 0 Result Diagram: 09/22/16 0648 09/22/16 0648 Imaging Last Impressions Upper Extremity Ultrasound 09/22/16 0000 Signed Impressions: Service Date/Time: Thursday, September 22, 2016 23:36 - CONCLUSION: 1. Nonocclusive thrombus in the cephalic vein. The remaining aspect of the right upper extremity venous system is patent. Mark Maddox MD Upper Extremity MRI 09/22/16 0000 Signed Impressions: Service Date/Time: Thursday, September 22, 2016 15:28 - CONCLUSION: 1. There is enhancement of a vein along the radial aspect of the forearm, likely the cephalic vein. Based on the appearance it is suspected to be thrombosed. This could be confirmed with upper extremity Doppler ultrasound. Given the surrounding edema it may represent a thrombophlebitis. 2. Relatively diffuse subcutaneous edema throughout the forearm most severe proximally. There is a focal area of edema and enhancement in the superficial subcutaneous tissues adjacent to the distal posterior ulna. This could represent a focal area of inflammation or infection. There are no findings to indicate osteomyelitis or deep abscess. Mark Connell MD Chest X-Ray 09/21/16 1244 Signed Impressions: Service Date/Time: Wednesday, September 21, 2016 13:24 - CONCLUSION: Normal examination. Zack Corea Jr., MD Objective Remarks General: No acute distress. Heart: Regular rate and rhythm. No murmur. Lungs: Clear to auscultation bilaterally. No wheezes, rales, or rhonchi. Breathing is nonlabored. Abdomen: Soft, nontender, nondistended. Extremities: No lower extremity edema. BOOM samaniego. There is swelling, erythema, and induration of the right forearm. Psych: Sleeping, but awakens and answers questions. Procedures None Urinary Catheter: No Vascular Central Line Catheter: No A/P Problem List: (1) Abscess of right arm ICD Code: L02.413 Status: Acute (2) Right arm cellulitis ICD Code: L03.113 Status: Acute (3) IV drug abuse ICD Code: F19.10 Status: Chronic (4) Failure of outpatient treatment ICD Code: Z78.9 Status: Acute Assessment and Plan 1. Cellulitis/abscess, right arm: Failed outpatient therapy. Patient was given clindamycin in the ER 2 days ago. Bactrim and Keflex were added at ACT. Continue vancomycin, Zosyn. Appreciate infectious disease recommendations. MRI report noted. Consider hand surgery consult if no clinical improvement. 2. IV drug abuse, alcohol abuse: Patient has been counseled. Monitor for withdrawal symptoms. [place] protocol. Withdrawal precautions. Thiamine. 3. Sepsis: Secondary to cellulitis. Patient presented with fever, tachycardia, leukocytosis. Continue antibiotics as above. 4. Leukocytosis: Labs are pending today. 5. DVT prophylaxis: SCDs, BOOM shafere. Maxi Streeter MD Sep 23, 2016 11:24
[2016-09-23 12:29] LABS: AUTOMATED NEUTROPHIL # 9.4 TH/MM3 (1.8-7.7); BASOPHIL % 0.2 % (0.0-2.0); EOSINOPHIL % 0.1 % (0.0-4.0); HEMATOCRIT 32.7 % (35.0-46.0); HEMO FLAGS DIFF FINAL; LYMPH % 25.3 % (9.0-44.0); LYMPHOCYTE # 3.5 TH/MM3 (1.0-4.8); MEAN CELL VOLUME 84.7 FL (80.0-100.0); MEAN CORPUSCULAR HEMOGLOBIN 28.2 PG (27.0-34.0); MEAN CORPUSCULAR HGB CONC 33.3 % (32.0-36.0); MONO % 6.6 % (0.0-8.0); NEUT % 67.8 % (16.0-70.0); PLATELET COUNT 299 TH/MM3 (150-450); RED BLOOD COUNT 3.86 MIL/MM3 (4.00-5.30); RED CELL DISTRIBUTION WIDTH 15.8 % (11.6-17.2); WHITE BLOOD COUNT 13.9 TH/MM3 (4.0-11.0)
--- NOTE | 2016-09-23 13:03 | HHI.IDPN ---
Subjective Subjective Remarks Notes reviewed No new complaint BC with GAS No new (+) BC MRI no abscess, has abnormal cephalic vein with surrounding inflammatory changes US with thrombus in cephalic vein Antibiotics Vanco Maicol Past Medical History IVDU Allergies: Coded Allergies: No Known Allergies (Unverified , 09/19/16) Objective . Vital Signs Date Time Temp Pulse Resp B/P Pulse Ox O2 Delivery O2 Flow Rate FiO2 09/23/16 11:21 98.9 56 24 124/70 97 09/23/16 10:18 Room Air 09/23/16 08:00 99.2 62 20 131/78 99 09/23/16 04:35 98.8 65 16 138/84 98 09/22/16 23:23 99.4 56 16 126/81 98 09/22/16 20:50 95.5 64 20 138/87 99 09/22/16 20:00 Room Air 09/22/16 16:00 98.3 65 18 127/77 99 09/22/16 09/22/16 09/23/16 15:00 23:00 07:00 Intake Total 720 ml 240 ml 2125 ml Balance 720 ml 240 ml 2125 ml Intake Oral 720 ml 240 ml 480 ml IV Total 1645 ml # Voids 0 3 3 # Bowel Movements 0 11 0 . Laboratory Tests Test 09/21/16 09/22/16 09/23/16 13:30 06:48 12:09 White Blood Count 18.7 TH/MM3 15.2 TH/MM3 13.9 TH/MM3 Red Blood Count 4.21 MIL/MM3 3.81 MIL/MM3 3.86 MIL/MM3 Hemoglobin 11.7 GM/DL 10.7 GM/DL 10.9 GM/DL Hematocrit 35.6 % 32.3 % 32.7 % Mean Corpuscular Volume 84.6 FL 84.8 FL 84.7 FL Mean Corpuscular Hemoglobin 27.8 PG 28.0 PG 28.2 PG Mean Corpuscular Hemoglobin 32.8 % 33.0 % 33.3 % Concent Red Cell Distribution Width 15.9 % 15.8 % 15.8 % Platelet Count 353 TH/MM3 313 TH/MM3 299 TH/MM3 Mean Platelet Volume 7.8 FL 7.5 FL 7.6 FL Neutrophils (%) (Auto) 79.9 % 69.2 % 67.8 % Lymphocytes (%) (Auto) 13.7 % 22.1 % 25.3 % Monocytes (%) (Auto) 5.8 % 8.3 % 6.6 % Eosinophils (%) (Auto) 0.0 % 0.2 % 0.1 % Basophils (%) (Auto) 0.6 % 0.2 % 0.2 % Neutrophils # (Auto) 14.9 TH/MM3 10.5 TH/MM3 9.4 TH/MM3 Lymphocytes # (Auto) 2.6 TH/MM3 3.3 TH/MM3 3.5 TH/MM3 Monocytes # (Auto) 1.1 TH/MM3 1.3 TH/MM3 0.9 TH/MM3 Eosinophils # (Auto) 0.0 TH/MM3 0.0 TH/MM3 0.0 TH/MM3 Basophils # (Auto) 0.1 TH/MM3 0.0 TH/MM3 0.0 TH/MM3 CBC Comment DIFF FINAL DIFF FINAL DIFF FINAL Differential Comment Laboratory Tests Test 09/21/16 09/21/16 09/22/16 13:15 13:30 06:48 Lactic Acid Level 0.8 mmol/L Sodium Level 140 MEQ/L Potassium Level 3.5 MEQ/L Chloride Level 107 MEQ/L Carbon Dioxide Level 24.2 MEQ/L Anion Gap 9 MEQ/L Blood Urea Nitrogen 8 MG/DL Creatinine 0.78 MG/DL 0.84 MG/DL Estimat Glomerular Filtration 87 ML/MIN 80 ML/MIN Rate Random Glucose 104 MG/DL Calcium Level 8.9 MG/DL Total Bilirubin 0.4 MG/DL Aspartate Amino Transf 17 U/L (AST/SGOT) Alanine Aminotransferase 27 U/L (ALT/SGPT) Alkaline Phosphatase 101 U/L Total Protein 7.5 GM/DL Albumin 2.7 GM/DL Microbiology Date/Time Procedure Status Source Growth 09/21/16 13:15 Aerobic Blood Culture - Preliminary Resulted Blood Peripheral NO GROWTH IN 2 DAYS 09/21/16 13:15 Anaerobic Blood Culture - Preliminary Resulted Group A Beta Strep 09/21/16 13:30 Aerobic Blood Culture - Preliminary Resulted Blood Peripheral Group A Beta Strep 09/21/16 13:30 Anaerobic Blood Culture - Preliminary Resulted Blood Peripheral NO GROWTH IN 2 DAYS 09/21/16 21:30 Urine Culture - Final Complete Urine Clean Catch NO GROWTH IN 48 HOURS. 09/22/16 11:27 Aerobic Blood Culture - Preliminary Resulted Blood Peripheral NO GROWTH IN 1 DAY 09/22/16 11:27 Anaerobic Blood Culture - Final Resulted Blood Peripheral QNS - SEE AEROBE REPORT 09/22/16 12:16 Aerobic Blood Culture - Preliminary Resulted Blood Peripheral NO GROWTH IN 1 DAY 09/22/16 12:16 Anaerobic Blood Culture - Preliminary Resulted Blood Peripheral NO GROWTH IN 1 DAY Imaging Last Impressions Upper Extremity Ultrasound 09/22/16 0000 Signed Impressions: Service Date/Time: Thursday, September 22, 2016 23:36 - CONCLUSION: 1. Nonocclusive thrombus in the cephalic vein. The remaining aspect of the right upper extremity venous system is patent. Mark Maddox MD Upper Extremity MRI 09/22/16 0000 Signed Impressions: Service Date/Time: Thursday, September 22, 2016 15:28 - CONCLUSION: 1. There is enhancement of a vein along the radial aspect of the forearm, likely the cephalic vein. Based on the appearance it is suspected to be thrombosed. This could be confirmed with upper extremity Doppler ultrasound. Given the surrounding edema it may represent a thrombophlebitis. 2. Relatively diffuse subcutaneous edema throughout the forearm most severe proximally. There is a focal area of edema and enhancement in the superficial subcutaneous tissues adjacent to the distal posterior ulna. This could represent a focal area of inflammation or infection. There are no findings to indicate osteomyelitis or deep abscess. Mark Connell MD Chest X-Ray 09/21/16 1244 Signed Impressions: Service Date/Time: Wednesday, September 21, 2016 13:24 - CONCLUSION: Normal examination. Zack Corea Jr., MD Physical Exam GENERAL: awake and alert, in no apparent distress. SKIN: Cool and dry. Has track hill both UE. Has excoriations in her face HEENT: [place] conjunctivae, no petechia or hemorrhage. No scleral icterus. Moist oral mucosa. NECK: Trachea midline. No JVD or lymphadenopathy. Supple, nontender, no meningeal signs. CARDIOVASCULAR: Regular rate and rhythm without murmurs, gallops, or rubs. RESPIRATORY: Clear to auscultation. Breath sounds equal bilaterally. No wheezes , rales, or rhonchi. GASTROINTESTINAL: Abdomen soft, non-tender, nondistended. No hepato-splenomegaly , or palpable masses. No guarding. MUSCULOSKELETAL: Lower extremities without clubbing, cyanosis, or edema. No joint tenderness, effusion, or edema noted. No calf tenderness. Negative Homans sign bilaterally. RUE - has an area of erythema distal to antecub fossa, has a tender palpable cord, no fluctuance NEUROLOGICAL: Non-focal PSYCH: Cooperative LINE: PIV with no evidence of infection Assessment & Plan Remarks IMPRESSION Sepsis present on admission, has GAS bacteremia - has fever, leukocytosis, tachycardia GAS sepsis Cellulitis RUE, has for suppurative phlebitis due to IVDU RECOMMENDATION Change Abx to Rocephin Monitor RUE - if develops fluctuance will consult surgery If BC persistently (+) will need excision infected vein Echo Follow C/S Monitor temps Monitor progress Explained plan to patient Marva Canseco MD Sep 23, 2016 13:02
[2016-09-23] MEDS: cefTRIAXone INJ 2,000 MG in SODIUM CHLORIDE 0.9% INJ 100 ML IV SCH (14:04)
[2016-09-23 16:00] VITALS: BP 133/81; PULSE 53; RESP 20; TEMP 98.3; O2SAT 97
[2016-09-23] MEDS: VANCOMYCIN INJ 1,500 MG in SODIUM CHLORID 0.9% 500 ML INJ 500 ML IV SCH (17:12)
[2016-09-23 20:00] VITALS: BP 117/69; PULSE 60; RESP 21; TEMP 96.4; O2SAT 96
[2016-09-23] MEDS ORDERED: KETOROLAC TROMETHAMINE 30 MG/ML (IVP) VIAL IV PUSH ONE (21:00)
--- NOTE | 2016-09-23 21:03 | EC ---
Study Study Date:09/23/2016 STUDY CONCLUSIONS SUMMARY - Left ventricle: The cavity size was normal. Wall thickness was normal. Systolic function was normal. The estimated ejection fraction was 55%. Wall motion was normal; there were no regional wall motion abnormalities. - Mitral valve: Mild regurgitation. - Tricuspid valve: Mild regurgitation. - Pulmonary arteries: PA peak pressure: 34mm Hg (S). If LV function is below 40, please consider prescribing an ACEI or ARB or document rationale for non-use. PROCEDURE DATA STUDY STATUS: Elective. Procedure: Transthoracic echocardiography. Image quality was good. Scanning was performed from the parasternal, apical, and subcostal acoustic windows. Study completion: The patient tolerated the procedure well. Transthoracic echocardiography. M-mode, complete 2D, complete spectral Doppler, and color Doppler. Patient status: Inpatient. CARDIAC ANATOMY LEFT VENTRICLE: The cavity size was normal. Wall thickness was normal. Systolic function was normal. The estimated ejection fraction was 55%. Wall motion was normal; there were no regional wall motion abnormalities. AORTIC VALVE: Trileaflet; normal thickness leaflets. Doppler: Transvalvular velocity was within the normal range. There was no stenosis. No regurgitation. AORTA: Aortic root: The aortic root was normal in size. MITRAL VALVE: Structurally normal valve. Doppler: Transvalvular velocity was within the normal range. There was no evidence for stenosis. Mild regurgitation. Peak gradient: 4mm Hg (D). LEFT ATRIUM: The atrium was normal in size. RIGHT VENTRICLE: The cavity size was normal. Wall thickness was normal. PULMONIC VALVE: Doppler: Transvalvular velocity was within the normal range. There was no evidence for stenosis. No regurgitation. TRICUSPID VALVE: Structurally normal valve. Doppler: Transvalvular velocity was within the normal range. Mild regurgitation. PULMONARY ARTERY: The main pulmonary artery was normal-sized. Systolic pressure was within the normal range. RIGHT ATRIUM: The atrium was normal in size. PERICARDIUM: There was no pericardial effusion. SYSTEMIC VEINS: Inferior vena cava: The vessel was normal in size. BASIC MEASUREMENTS ADULT Normal Left ventricle LV internal dimension, ED, chordal level, *40.6 mm 43-52 PLAX LV internal dimension, ES, chordal level, 31 mm 23-38 PLAX Fractional shortening, chordal level, PLAX *24 % >29 LV posterior wall thickness, ED 7.81 mm IVS/LVPW ratio, ED 0.99 <1.3 Ventricular septum Septal thickness, ED 7.72 mm Aortic valve Leaflet separation 19 mm 15-26 Left atrium Anterior-posterior dimension 34 mm Right ventricle RV internal dimension, ED, PLAX 19.6 mm 19-38 BASIC MEASUREMENTS ADULT Normal Aortic valve Leaflet separation 19 mm 15-26 Aorta Root diameter, ED 31 mm 20-37 DOPPLER MEASUREMENTS ADULT Normal Main pulmonary artery Pressure, S *34 mm Hg =30 Mitral valve Peak E-wave velocity 93.8 cm/s Peak A-wave velocity 45.4 cm/s Peak gradient, D 4 mm Hg Peak E/A ratio 2.1 Tricuspid valve Regurgitant peak velocity 269 cm/s Peak RV-RA gradient, S 29 mm Hg Maximal regurgitant velocity 269 cm/s Systemic veins Estimated CVP 5 mm Hg Right ventricle RV pressure, S *34 mm Hg <30 LEGEND: Mean values are shown as u=mean value. Asterisk (*) hill values outside specified normal range. Alma Rosa Parham [id number]
[2016-09-23] MEDS ORDERED: LORazepam 2 MG/ML VIAL IV PUSH ONE (22:15)
[2016-09-23] MEDS: NICOTINE 21 MG/24 HR PATCH TD SCH (22:32)
[2016-09-23 23:17] VITALS: BP 116/69; PULSE 67; RESP 16; TEMP 98.3; O2SAT 96
[2016-09-24] MEDS: LORazepam 2 MG/ML VIAL IV PUSH PRN (01:06)
[2016-09-24] MEDS: PIPERACIL-TAZO 3.375 GM PREMIX 50 ML IV SCH ×4 (01:07→21:33)
[2016-09-24] MEDS: VANCOMYCIN INJ 1,500 MG in SODIUM CHLORID 0.9% 500 ML INJ 500 ML IV SCH (02:20)
[2016-09-24] MEDS: SODIUM CHLOR 0.9% 1000 ML INJ 1,000 ML IV SCH ×3 (04:45→20:45)
[2016-09-24] MEDS: LORazepam 1 MG TAB PO PRN ×5 (04:48→21:32)
[2016-09-24 08:00] VITALS: BP 144/80; PULSE 55; RESP 18; TEMP 97.8; O2SAT 98
[2016-09-24] MEDS: SODIUM CHLORIDE 0.9% FLUSH 5 ML FLUSH FLUSH SCH ×2 (08:43→21:32)
[2016-09-24] MEDS: MULTIVITAMIN TAB PO SCH (08:44)
[2016-09-24] MEDS: NICOTINE 21 MG/24 HR PATCH TD SCH (08:44)
[2016-09-24] MEDS: THIAMINE HCL 100 MG TAB PO SCH (08:44)
[2016-09-24] MEDS: REMOVE OLD PATCH TD SCH (08:45)
[2016-09-24] MEDS: FOLIC ACID 1 MG TAB PO SCH (08:45)
--- NOTE | 2016-09-24 11:54 | HHI.PR ---
Subjective Remarks The patient states she had nausea with emesis this morning. She states that she is irritated because she did not get IV Ativan because her IV fell out. She now has a new IV. Denies fevers or chills. Objective Vitals Vital Signs Date Time Temp Pulse Resp B/P Pulse Ox O2 Delivery O2 Flow Rate FiO2 09/23/16 23:17 98.3 67 16 116/69 96 09/23/16 20:00 96.4 60 21 117/69 96 09/23/16 20:00 Room Air 09/23/16 16:00 98.3 53 20 133/81 97 I/O 09/23/16 09/23/16 09/23/16 09/24/16 09/24/16 09/24/16 07:00 15:00 23:00 07:00 15:00 23:00 Intake Total 2125 ml 720 ml 240 ml 240 ml Balance 2125 ml 720 ml 240 ml 240 ml Intake Oral 480 ml 720 ml 240 ml 240 ml IV Total 1645 ml # Voids 3 2 3 4 # Bowel Movements 0 4 2 0 Result Diagram: 09/23/16 1209 09/22/16 0648 Objective Remarks GENERAL: Well-nourished, well-developed lean female patient. SKIN: Warm and dry. HEAD: Normocephalic. EYES: No scleral icterus. No injection or drainage. NECK: Supple, trachea midline. No JVD or lymphadenopathy. CARDIOVASCULAR: Regular rate and rhythm without murmurs, gallops, or rubs. RESPIRATORY: Breath sounds equal bilaterally. No accessory muscle use. GASTROINTESTINAL: Abdomen soft, non-tender, nondistended. EXTREMITIES: No cyanosis, or edema. NEUROLOGICAL: Awake, alert, and oriented x 3. Non-focal. Procedures None A/P Problem List: (1) Abscess of right arm ICD Code: L02.413 Status: Acute (2) Right arm cellulitis ICD Code: L03.113 Status: Acute (3) IV drug abuse ICD Code: F19.10 Status: Chronic (4) Failure of outpatient treatment ICD Code: Z78.9 Status: Acute Assessment and Plan 1. Cellulitis/abscess, right arm, with group A strep bacteremia - separative phlebitis due to IV drug abuse: Failed outpatient therapy. Patient was given clindamycin in the ER 2 days ago. Bactrim and Keflex were added at [facility]. Continue vancomycin, Zosyn. Appreciate infectious disease recommendations. MRI report noted - no abscess. Consider hand surgery consult if no clinical improvement. 2. Thrombus in the cephalic vein 3. IV drug abuse, alcohol abuse: Patient has been counseled. Monitor for withdrawal symptoms. CIWA protocol. Withdrawal precautions. Thiamine. 4. Sepsis/GAS bacteremia: Continue antibiotics as above. 5. Alcohol abuse - cont CIWA protocol. 6. Leukocytosis: Labs are pending today. 7. DVT prophylaxis: BOOM Fitzgerald. Clare Goldstein MD Sep 24, 2016 11:54
[2016-09-24 12:00] VITALS: BP 133/87; PULSE 54; RESP 20; TEMP 98.2; O2SAT 97
[2016-09-24] MEDS: cefTRIAXone INJ 2,000 MG in SODIUM CHLORIDE 0.9% INJ 100 ML IV SCH (12:10)
[2016-09-24] MEDS: ONDANSETRON HCL 4 MG/2 ML VIAL IVP PRN (12:10)
[2016-09-24 12:26] LABS: AUTOMATED NEUTROPHIL # 6.8 TH/MM3 (1.8-7.7); BASOPHIL % 0.4 % (0.0-2.0); EOSINOPHIL # 0.1 TH/MM3 (0-0.4); EOSINOPHIL % 0.7 % (0.0-4.0); HEMATOCRIT 34.5 % (35.0-46.0); HEMO FLAGS DIFF FINAL; LYMPH % 30.7 % (9.0-44.0); LYMPHOCYTE # 3.3 TH/MM3 (1.0-4.8); MEAN CELL VOLUME 85.8 FL (80.0-100.0); MEAN CORPUSCULAR HEMOGLOBIN 28.5 PG (27.0-34.0); MEAN CORPUSCULAR HGB CONC 33.2 % (32.0-36.0); NEUT % 63.2 % (16.0-70.0); PLATELET COUNT 301 TH/MM3 (150-450); RED BLOOD COUNT 4.02 MIL/MM3 (4.00-5.30); WHITE BLOOD COUNT 10.7 TH/MM3 (4.0-11.0)
[2016-09-24 12:39] LABS: BICARBONATE 22.3 MEQ/L (21.0-32.0); POTASSIUM 3.5 MEQ/L (3.5-5.1)
--- NOTE | 2016-09-24 12:57 | HHI.IDPN ---
Subjective Subjective Remarks Notes reviewed No new complaint BC with GAS No new (+) BC MRI no abscess, has abnormal cephalic vein with surrounding inflammatory changes US with thrombus in cephalic vein Antibiotics Rocephin Past Medical History IVDU Allergies: Coded Allergies: No Known Allergies (Unverified , 09/19/16) Objective . Vital Signs Date Time Temp Pulse Resp B/P Pulse Ox O2 Delivery O2 Flow Rate FiO2 09/23/16 23:17 98.3 67 16 116/69 96 09/23/16 20:00 96.4 60 21 117/69 96 09/23/16 20:00 Room Air 09/23/16 16:00 98.3 53 20 133/81 97 09/23/16 09/23/16 09/24/16 15:00 23:00 07:00 Intake Total 720 ml 240 ml 240 ml Balance 720 ml 240 ml 240 ml Intake Oral 720 ml 240 ml 240 ml # Voids 2 3 4 # Bowel Movements 4 2 0 . Laboratory Tests Test 09/23/16 09/24/16 12:09 12:01 White Blood Count 13.9 TH/MM3 10.7 TH/MM3 Red Blood Count 3.86 MIL/MM3 4.02 MIL/MM3 Hemoglobin 10.9 GM/DL 11.5 GM/DL Hematocrit 32.7 % 34.5 % Mean Corpuscular Volume 84.7 FL 85.8 FL Mean Corpuscular Hemoglobin 28.2 PG 28.5 PG Mean Corpuscular Hemoglobin 33.3 % 33.2 % Concent Red Cell Distribution Width 15.8 % 16.0 % Platelet Count 299 TH/MM3 301 TH/MM3 Mean Platelet Volume 7.6 FL 7.5 FL Neutrophils (%) (Auto) 67.8 % 63.2 % Lymphocytes (%) (Auto) 25.3 % 30.7 % Monocytes (%) (Auto) 6.6 % 5.0 % Eosinophils (%) (Auto) 0.1 % 0.7 % Basophils (%) (Auto) 0.2 % 0.4 % Neutrophils # (Auto) 9.4 TH/MM3 6.8 TH/MM3 Lymphocytes # (Auto) 3.5 TH/MM3 3.3 TH/MM3 Monocytes # (Auto) 0.9 TH/MM3 0.5 TH/MM3 Eosinophils # (Auto) 0.0 TH/MM3 0.1 TH/MM3 Basophils # (Auto) 0.0 TH/MM3 0.0 TH/MM3 CBC Comment DIFF FINAL DIFF FINAL Differential Comment Laboratory Tests Test 09/24/16 12:01 Sodium Level 143 MEQ/L Potassium Level 3.5 MEQ/L Chloride Level 111 MEQ/L Carbon Dioxide Level 22.3 MEQ/L Anion Gap 10 MEQ/L Blood Urea Nitrogen 1 MG/DL Creatinine 0.81 MG/DL Estimat Glomerular Filtration 83 ML/MIN Rate Random Glucose 92 MG/DL Calcium Level 8.8 MG/DL Microbiology Date/Time Procedure Status Source Growth 09/21/16 13:15 Aerobic Blood Culture - Preliminary Resulted Blood Peripheral NO GROWTH IN 3 DAYS 09/21/16 13:15 Anaerobic Blood Culture - Final Resulted Group A Beta Strep 09/21/16 13:30 Aerobic Blood Culture - Final Resulted Blood Peripheral Group A Beta Strep 09/21/16 13:30 Anaerobic Blood Culture - Preliminary Resulted Blood Peripheral NO GROWTH IN 3 DAYS 09/21/16 21:30 Urine Culture - Final Complete Urine Clean Catch NO GROWTH IN 48 HOURS. 09/22/16 11:27 Aerobic Blood Culture - Preliminary Resulted Blood Peripheral NO GROWTH IN 2 DAYS 09/22/16 11:27 Anaerobic Blood Culture - Final Resulted Blood Peripheral QNS - SEE AEROBE REPORT 09/22/16 12:16 Aerobic Blood Culture - Preliminary Resulted Blood Peripheral NO GROWTH IN 2 DAYS 09/22/16 12:16 Anaerobic Blood Culture - Preliminary Resulted Blood Peripheral NO GROWTH IN 2 DAYS Imaging Last Impressions Upper Extremity Ultrasound 09/22/16 0000 Signed Impressions: Service Date/Time: Thursday, September 22, 2016 23:36 - CONCLUSION: 1. Nonocclusive thrombus in the cephalic vein. The remaining aspect of the right upper extremity venous system is patent. Mark Maddox MD Upper Extremity MRI 09/22/16 0000 Signed Impressions: Service Date/Time: Thursday, September 22, 2016 15:28 - CONCLUSION: 1. There is enhancement of a vein along the radial aspect of the forearm, likely the cephalic vein. Based on the appearance it is suspected to be thrombosed. This could be confirmed with upper extremity Doppler ultrasound. Given the surrounding edema it may represent a thrombophlebitis. 2. Relatively diffuse subcutaneous edema throughout the forearm most severe proximally. There is a focal area of edema and enhancement in the superficial subcutaneous tissues adjacent to the distal posterior ulna. This could represent a focal area of inflammation or infection. There are no findings to indicate osteomyelitis or deep abscess. Mark Connell MD Chest X-Ray 09/21/16 1244 Signed Impressions: Service Date/Time: Wednesday, September 21, 2016 13:24 - CONCLUSION: Normal examination. Zack Corea Jr., MD Physical Exam GENERAL: awake and alert, NAD SKIN: Cool and dry. Has track hill both UE. Has excoriations in her face HEENT: [place] conjunctivae, no petechia or hemorrhage. No scleral icterus. Moist oral mucosa. NECK: Supple, nontender, no meningeal signs. CARDIOVASCULAR: Regular rate and rhythm without murmurs, gallops, or rubs. RESPIRATORY: Clear to auscultation. Breath sounds equal bilaterally. No wheezes , rales, or rhonchi. GASTROINTESTINAL: Abdomen soft, non-tender, nondistended. No hepato-splenomegaly , or palpable masses. No guarding. MUSCULOSKELETAL: RUE - has an area of erythema distal to antecub fossa and this is markedly improved, has a tender palpable cord which seems slightlty better, no fluctuance NEUROLOGICAL: Non-focal PSYCH: Cooperative LINE: PIV with no evidence of infection Assessment & Plan Remarks IMPRESSION Sepsis present on admission, has GAS bacteremia - has fever, leukocytosis, tachycardia GAS sepsis - echo ok - no new (+) BC Cellulitis RUE, has for suppurative phlebitis due to IVDU RECOMMENDATION Continue Rocephin Monitor RUE - if develops fluctuance will consult surgery If BC persistently (+) will need excision infected vein Follow C/S Monitor temps Monitor progress Seems to be responding to current IV Abx Explained plan to patient Marva Canseco MD Sep 24, 2016 12:57
[2016-09-24 16:00] VITALS: BP 115/59; PULSE 64; RESP 20; TEMP 98.4; O2SAT 96
[2016-09-24] MEDS ORDERED: KETOROLAC TROMETHAMINE 30 MG/ML (IVP) VIAL IV PUSH SCH (18:00)
[2016-09-24 19:05] VITALS: BP 134/80; PULSE 66; RESP 18; TEMP 97.8; O2SAT 99
[2016-09-24 23:05] VITALS: BP 111/72; PULSE 56; RESP 20; TEMP 97.9; O2SAT 99
[2016-09-25] MEDS: PIPERACIL-TAZO 3.375 GM PREMIX 50 ML IV SCH ×3 (01:10→14:13)
[2016-09-25] MEDS: LORazepam 2 MG TAB PO PRN ×2 (01:11→05:10)
[2016-09-25] MEDS: KETOROLAC TROMETHAMINE 30 MG/ML (IVP) VIAL IV PUSH PRN ×4 (01:11→22:42)
[2016-09-25] MEDS ORDERED: PHARMACY ORDERED LAB XX ONE (02:45)
[2016-09-25 04:43] VITALS: BP 132/77; PULSE 60; RESP 18; TEMP 98.7; O2SAT 98
[2016-09-25] MEDS: SODIUM CHLOR 0.9% 1000 ML INJ 1,000 ML IV SCH ×3 (04:45→20:39)
[2016-09-25 08:00] VITALS: BP 133/82; PULSE 61; RESP 20; TEMP 98.1; O2SAT 96
[2016-09-25] MEDS: NICOTINE 21 MG/24 HR PATCH TD SCH (08:18)
[2016-09-25] MEDS: REMOVE OLD PATCH TD SCH (08:18)
[2016-09-25] MEDS: MULTIVITAMIN TAB PO SCH (08:19)
[2016-09-25] MEDS: THIAMINE HCL 100 MG TAB PO SCH (08:19)
[2016-09-25] MEDS: FOLIC ACID 1 MG TAB PO SCH (08:19)
[2016-09-25] MEDS: SODIUM CHLORIDE 0.9% FLUSH 5 ML FLUSH FLUSH SCH ×2 (08:22→20:38)
--- NOTE | 2016-09-25 11:17 | HHI.PR ---
Objective Vitals Vital Signs Date Time Temp Pulse Resp B/P Pulse Ox O2 Delivery O2 Flow Rate FiO2 09/25/16 08:00 98.1 61 20 133/82 96 09/25/16 04:43 98.7 60 18 132/77 98 09/24/16 23:05 97.9 56 20 111/72 99 09/24/16 21:30 Room Air 09/24/16 19:05 97.8 66 18 134/80 99 09/24/16 16:00 98.4 64 20 115/59 96 09/24/16 16:00 97 Room Air 09/24/16 12:00 98.2 54 20 133/87 97 I/O 09/24/16 09/24/16 09/24/16 09/25/16 09/25/16 09/25/16 07:00 15:00 23:00 07:00 15:00 23:00 Intake Total 240 ml 720 ml 1302 ml 1568 ml Balance 240 ml 720 ml 1302 ml 1568 ml Intake Oral 240 ml 720 ml 600 ml IV Total 1302 ml 968 ml # Voids 4 2 2 # Bowel Movements 0 3 0 Result Diagram: 09/24/16 1201 09/24/16 1201 Imaging Last Impressions Upper Extremity Ultrasound 09/22/16 0000 Signed Impressions: Service Date/Time: Thursday, September 22, 2016 23:36 - CONCLUSION: 1. Nonocclusive thrombus in the cephalic vein. The remaining aspect of the right upper extremity venous system is patent. Mark Maddox MD Upper Extremity MRI 09/22/16 0000 Signed Impressions: Service Date/Time: Thursday, September 22, 2016 15:28 - CONCLUSION: 1. There is enhancement of a vein along the radial aspect of the forearm, likely the cephalic vein. Based on the appearance it is suspected to be thrombosed. This could be confirmed with upper extremity Doppler ultrasound. Given the surrounding edema it may represent a thrombophlebitis. 2. Relatively diffuse subcutaneous edema throughout the forearm most severe proximally. There is a focal area of edema and enhancement in the superficial subcutaneous tissues adjacent to the distal posterior ulna. This could represent a focal area of inflammation or infection. There are no findings to indicate osteomyelitis or deep abscess. Mark Connell MD Chest X-Ray 09/21/16 1244 Signed Impressions: Service Date/Time: Wednesday, September 21, 2016 13:24 - CONCLUSION: Normal examination. Zack Corea Jr., MD Objective Remarks GENERAL: Alert, Oriented x 3, NAD. SKIN: Warm and dry. HEAD: Normocephalic. EYES: No scleral icterus. No injection or drainage. NECK: Supple, trachea midline. No JVD or lymphadenopathy. CARDIOVASCULAR: Regular rate and rhythm without murmurs, gallops, or rubs. RESPIRATORY: Breath sounds equal bilaterally. No accessory muscle use. GASTROINTESTINAL: Abdomen soft, non-tender, nondistended. MUSCULOSKELETAL: No cyanosis, or edema. right forearm with thrombophlebitis, tender to palpation. BACK: Nontender without obvious deformity. No CVA tenderness. Procedures Echocardiogram 09/23/2016. - Left ventricle: The cavity size was normal. Wall thickness was normal. Systolic function was normal. The estimated ejection fraction was 55%. Wall motion was normal; there were no regional wall motion abnormalities. - Mitral valve: Mild regurgitation. - Tricuspid valve: Mild regurgitation. - Pulmonary arteries: PA peak pressure: 34mm Hg (S). A/P Problem List: (1) Abscess of right arm ICD Code: L02.413 Status: Acute (2) IV drug abuse ICD Code: F19.10 Status: Chronic (3) Failure of outpatient treatment ICD Code: Z78.9 Status: Acute Assessment and Plan Ms. Arellano is a 30 year old female with a history of IVDU who was sent from [facility] due to cellulitis, possible abscess on her right forearm. She used heroin few days prior to this admission. She was started on Clindamycin by ER two days prior to this admission and Bactrim, Keflex were added at [facility]. Due to treatment failure, patient was sent to the ED. Upon admission, Vanc and Zosyn were started by ID. - Group A streptococcus Bacteremia - Sepsis due to Group A Strep - Right arm phlebitis. - Currently on Ceftriaxone. Zosyn is continued but Zosyn likely can be discontinued. - MRI shows no abscess. Clinically improving. Surgery consult if no improvement. - Continue Toradol. Pain is not well control. Since we cannot use toradol for too long, we will start Tramadol 50mg Q8hrs PRN. - IV drug use - Alcohol abuse - Continue [facility] protocol. - Patient has been counseled. Continue Folic acid, thiamine. - Ty Best after discharge. Full code. SCDs. Malia Manzano DO Sep 25, 2016 11:17 am
[2016-09-25 12:00] VITALS: BP 129/82; PULSE 57; RESP 18; TEMP 98.7; O2SAT 98
[2016-09-25 12:13] LABS: AUTOMATED NEUTROPHIL # 8.1 TH/MM3 (1.8-7.7); BASOPHIL # 0.1 TH/MM3 (0-0.2); BASOPHIL % 0.4 % (0.0-2.0); EOSINOPHIL # 0.2 TH/MM3 (0-0.4); EOSINOPHIL % 1.3 % (0.0-4.0); HEMATOCRIT 35.7 % (35.0-46.0); HEMO FLAGS DIFF FINAL; LYMPH % 31.4 % (9.0-44.0); MEAN CELL VOLUME 84.1 FL (80.0-100.0); MEAN CORPUSCULAR HEMOGLOBIN 27.9 PG (27.0-34.0); MEAN CORPUSCULAR HGB CONC 33.2 % (32.0-36.0); MONO % 3.7 % (0.0-8.0); NEUT % 63.2 % (16.0-70.0); PLATELET COUNT 347 TH/MM3 (150-450); RED BLOOD COUNT 4.24 MIL/MM3 (4.00-5.30); RED CELL DISTRIBUTION WIDTH 15.5 % (11.6-17.2); WHITE BLOOD COUNT 12.8 TH/MM3 (4.0-11.0)
[2016-09-25 12:38] LABS: BICARBONATE 23.5 MEQ/L (21.0-32.0); POTASSIUM 3.3 MEQ/L (3.5-5.1)
[2016-09-25] MEDS: cefTRIAXone INJ 2,000 MG in SODIUM CHLORIDE 0.9% INJ 100 ML IV SCH (14:13)
[2016-09-25] MEDS ORDERED: traMADol HCL 50 MG TAB PO PRN (14:45)
[2016-09-25] MEDS: LORazepam 1 MG TAB PO PRN (14:54)
--- NOTE | 2016-09-25 15:27 | HHI.IDPN ---
Subjective Subjective Remarks Notes reviewed No new complaint BC with GAS No new (+) BC MRI no abscess, has abnormal cephalic vein with surrounding inflammatory changes US with thrombus in cephalic vein Antibiotics Rocephin Past Medical History IVDU Allergies: Coded Allergies: No Known Allergies (Unverified , 09/19/16) Objective . Vital Signs Date Time Temp Pulse Resp B/P Pulse Ox O2 Delivery O2 Flow Rate FiO2 09/25/16 12:00 98.7 57 18 129/82 98 09/25/16 09:30 18 09/25/16 08:00 98.1 61 20 133/82 96 09/25/16 04:43 98.7 60 18 132/77 98 09/24/16 23:05 97.9 56 20 111/72 99 09/24/16 21:30 Room Air 09/24/16 19:05 97.8 66 18 134/80 99 09/24/16 16:00 98.4 64 20 115/59 96 09/24/16 16:00 97 Room Air 09/24/16 09/24/16 09/25/16 15:00 23:00 07:00 Intake Total 720 ml 1302 ml 1568 ml Balance 720 ml 1302 ml 1568 ml Intake Oral 720 ml 600 ml IV Total 1302 ml 968 ml # Voids 2 2 # Bowel Movements 3 0 . Laboratory Tests Test 09/24/16 09/25/16 12:01 11:36 White Blood Count 10.7 TH/MM3 12.8 TH/MM3 Red Blood Count 4.02 MIL/MM3 4.24 MIL/MM3 Hemoglobin 11.5 GM/DL 11.8 GM/DL Hematocrit 34.5 % 35.7 % Mean Corpuscular Volume 85.8 FL 84.1 FL Mean Corpuscular Hemoglobin 28.5 PG 27.9 PG Mean Corpuscular Hemoglobin 33.2 % 33.2 % Concent Red Cell Distribution Width 16.0 % 15.5 % Platelet Count 301 TH/MM3 347 TH/MM3 Mean Platelet Volume 7.5 FL 8.0 FL Neutrophils (%) (Auto) 63.2 % 63.2 % Lymphocytes (%) (Auto) 30.7 % 31.4 % Monocytes (%) (Auto) 5.0 % 3.7 % Eosinophils (%) (Auto) 0.7 % 1.3 % Basophils (%) (Auto) 0.4 % 0.4 % Neutrophils # (Auto) 6.8 TH/MM3 8.1 TH/MM3 Lymphocytes # (Auto) 3.3 TH/MM3 4.0 TH/MM3 Monocytes # (Auto) 0.5 TH/MM3 0.5 TH/MM3 Eosinophils # (Auto) 0.1 TH/MM3 0.2 TH/MM3 Basophils # (Auto) 0.0 TH/MM3 0.1 TH/MM3 CBC Comment DIFF FINAL DIFF FINAL Differential Comment Laboratory Tests Test 09/24/16 09/25/16 12:01 11:36 Sodium Level 143 MEQ/L 143 MEQ/L Potassium Level 3.5 MEQ/L 3.3 MEQ/L Chloride Level 111 MEQ/L 107 MEQ/L Carbon Dioxide Level 22.3 MEQ/L 23.5 MEQ/L Anion Gap 10 MEQ/L 13 MEQ/L Blood Urea Nitrogen 1 MG/DL 3 MG/DL Creatinine 0.81 MG/DL 0.85 MG/DL Estimat Glomerular Filtration 83 ML/MIN 79 ML/MIN Rate Random Glucose 92 MG/DL 98 MG/DL Calcium Level 8.8 MG/DL 8.5 MG/DL Imaging Last Impressions Upper Extremity Ultrasound 09/22/16 0000 Signed Impressions: Service Date/Time: Thursday, September 22, 2016 23:36 - CONCLUSION: 1. Nonocclusive thrombus in the cephalic vein. The remaining aspect of the right upper extremity venous system is patent. Mark Maddox MD Upper Extremity MRI 09/22/16 0000 Signed Impressions: Service Date/Time: Thursday, September 22, 2016 15:28 - CONCLUSION: 1. There is enhancement of a vein along the radial aspect of the forearm, likely the cephalic vein. Based on the appearance it is suspected to be thrombosed. This could be confirmed with upper extremity Doppler ultrasound. Given the surrounding edema it may represent a thrombophlebitis. 2. Relatively diffuse subcutaneous edema throughout the forearm most severe proximally. There is a focal area of edema and enhancement in the superficial subcutaneous tissues adjacent to the distal posterior ulna. This could represent a focal area of inflammation or infection. There are no findings to indicate osteomyelitis or deep abscess. Mark Connell MD Chest X-Ray 09/21/16 1244 Signed Impressions: Service Date/Time: Wednesday, September 21, 2016 13:24 - CONCLUSION: Normal examination. Zack Corea Jr., MD Physical Exam GENERAL: awake and alert, NAD SKIN: Cool and dry. Has track hill both UE. Has excoriations in her face HEENT: [place] conjunctivae, no petechia or hemorrhage. No scleral icterus. Moist oral mucosa. NECK: Supple, nontender, no meningeal signs. CARDIOVASCULAR: Regular rate and rhythm without murmurs, gallops, or rubs. RESPIRATORY: Clear to auscultation. Breath sounds equal bilaterally. No wheezes , rales, or rhonchi. GASTROINTESTINAL: Abdomen soft, non-tender, nondistended. No hepato-splenomegaly , or palpable masses. No guarding. MUSCULOSKELETAL: RUE - has an area of erythema distal to antecub fossa and this is markedly improved, has a tender palpable cord which seems slightly better, no fluctuance; Area of induration is better. Has 2 palpable area close to the thrombosed vein. NEUROLOGICAL: Non-focal PSYCH: Cooperative LINE: PIV with no evidence of infection Assessment & Plan Remarks IMPRESSION Sepsis present on admission, has GAS bacteremia - has fever, leukocytosis, tachycardia GAS sepsis - echo ok - no new (+) BC Cellulitis RUE, has for suppurative phlebitis due to IVDU RECOMMENDATION Continue Rocephin Monitor RUE - if develops fluctuance will consult surgery If BC persistently (+) will need excision infected vein Follow C/S Monitor temps Monitor progress Seems to be responding to current IV Abx Explained plan to patient Marva Canseco MD Sep 25, 2016 15:27
[2016-09-25 16:00] VITALS: BP 143/83; PULSE 55; RESP 18; TEMP 99; O2SAT 97
[2016-09-25 20:00] VITALS: BP 136/88; PULSE 91; RESP 20; TEMP 97.8; O2SAT 95
[2016-09-26] VITALS: BP 140/87; PULSE 77; RESP 20; TEMP 97.8; O2SAT 99
[2016-09-26] MEDS ORDERED: diphenhydrAMINE HCL 50 MG CAP PO ONE
[2016-09-26] MEDS: LORazepam 1 MG TAB PO PRN (01:00)
[2016-09-26 04:00] VITALS: BP 148/78; PULSE 60; RESP 20; TEMP 98.3; O2SAT 99
[2016-09-26] MEDS: SODIUM CHLOR 0.9% 1000 ML INJ 1,000 ML IV SCH ×3 (04:45→20:47)
[2016-09-26 08:00] VITALS: BP 146/79; PULSE 57; RESP 18; TEMP 97.8; O2SAT 98
--- NOTE | 2016-09-26 08:38 | HHI.PR ---
Subjective Remarks Follow-up for bacteremia, IV drug use, right upper extremity cellulitis. Patient is currently doing well. Denies any chest pain, shortness of breath, fever or chills. She does report being more anxious. She also requests Seroquel that she used to be on. Objective Vitals Vital Signs Date Time Temp Pulse Resp B/P Pulse Ox O2 Delivery O2 Flow Rate FiO2 09/26/16 04:00 98.3 60 20 148/78 99 09/26/16 00:04 5 09/26/16 00:00 97.8 77 20 140/87 99 09/25/16 20:40 Room Air 09/25/16 20:00 97.8 91 20 136/88 95 09/25/16 16:00 99.0 55 18 143/83 97 09/25/16 15:44 98 Room Air 09/25/16 12:00 98.7 57 18 129/82 98 I/O 09/25/16 09/25/16 09/25/16 09/26/16 09/26/16 09/26/16 07:00 15:00 23:00 07:00 15:00 23:00 Intake Total 1568 ml 840 ml 2849 ml 1900 ml Balance 1568 ml 840 ml 2849 ml 1900 ml Intake Oral 600 ml 840 ml 480 ml 1900 ml IV Total 968 ml 2369 ml # Voids 2 2 2 5 # Bowel Movements 0 1 1 Result Diagram: 09/25/16 1136 09/25/16 1136 Imaging Last Impressions Upper Extremity Ultrasound 09/22/16 0000 Signed Impressions: Service Date/Time: Thursday, September 22, 2016 23:36 - CONCLUSION: 1. Nonocclusive thrombus in the cephalic vein. The remaining aspect of the right upper extremity venous system is patent. Mark Maddox MD Upper Extremity MRI 09/22/16 0000 Signed Impressions: Service Date/Time: Thursday, September 22, 2016 15:28 - CONCLUSION: 1. There is enhancement of a vein along the radial aspect of the forearm, likely the cephalic vein. Based on the appearance it is suspected to be thrombosed. This could be confirmed with upper extremity Doppler ultrasound. Given the surrounding edema it may represent a thrombophlebitis. 2. Relatively diffuse subcutaneous edema throughout the forearm most severe proximally. There is a focal area of edema and enhancement in the superficial subcutaneous tissues adjacent to the distal posterior ulna. This could represent a focal area of inflammation or infection. There are no findings to indicate osteomyelitis or deep abscess. Mark Connell MD Chest X-Ray 09/21/16 1244 Signed Impressions: Service Date/Time: Wednesday, September 21, 2016 13:24 - CONCLUSION: Normal examination. Zack Corea Jr., MD Objective Remarks GENERAL: Alert, Oriented x 3, NAD. SKIN: Warm and dry. HEAD: Normocephalic. EYES: No scleral icterus. No injection or drainage. NECK: Supple, trachea midline. No JVD or lymphadenopathy. CARDIOVASCULAR: Regular rate and rhythm without murmurs, gallops, or rubs. RESPIRATORY: Breath sounds equal bilaterally. No accessory muscle use. GASTROINTESTINAL: Abdomen soft, non-tender, nondistended. MUSCULOSKELETAL: No cyanosis, or edema. right forearm with thrombophlebitis, tender to palpation. BACK: Nontender without obvious deformity. No CVA tenderness. Procedures Echocardiogram 09/23/2016. - Left ventricle: The cavity size was normal. Wall thickness was normal. Systolic function was normal. The estimated ejection fraction was 55%. Wall motion was normal; there were no regional wall motion abnormalities. - Mitral valve: Mild regurgitation. - Tricuspid valve: Mild regurgitation. - Pulmonary arteries: PA peak pressure: 34mm Hg (S). A/P Problem List: (1) Abscess of right arm ICD Code: L02.413 Status: Acute (2) IV drug abuse ICD Code: F19.10 Status: Chronic (3) Failure of outpatient treatment ICD Code: Z78.9 Status: Acute Assessment and Plan Ms. Arellano is a 30 year old female with a history of IVDU who was sent from [facility] due to cellulitis, possible abscess on her right forearm. She used heroin few days prior to this admission. She was started on Clindamycin by ER two days prior to this admission and Bactrim, Keflex were added at [facility]. Due to treatment failure, patient was sent to the ED. Upon admission, Vanc and Zosyn were started by ID. - Group A streptococcus Bacteremia - Sepsis due to Group A Strep - Right arm phlebitis. - Currently on Ceftriaxone. Zosyn discontinued. - MRI shows no abscess. Clinically improving. Surgery consult if no improvement. - Continue Toradol. Pain is not well control. No narcotic pain medications for now. - Toradol until 09/29/2016 and after that we can use Naproxen. - IV drug use - Alcohol abuse - Continue [facility] protocol. - Patient has been counseled. Continue Folic acid, thiamine. - Ty Best after discharge. - Anxiety/Insomnia - Will start 0.5mg clonazepam every 8 hours when necessary. - Start Seroquel 25 mg by mouth daily at bedtime. Full code. SCDs. Malia Manzano DO Sep 26, 2016 8:38 am
[2016-09-26] MEDS: MULTIVITAMIN TAB PO SCH (08:52)
[2016-09-26] MEDS: KETOROLAC TROMETHAMINE 30 MG/ML (IVP) VIAL IV PUSH PRN ×3 (08:52→20:46)
[2016-09-26] MEDS: FOLIC ACID 1 MG TAB PO SCH (08:52)
[2016-09-26] MEDS: REMOVE OLD PATCH TD SCH (08:53)
[2016-09-26] MEDS: NICOTINE 21 MG/24 HR PATCH TD SCH (08:53)
[2016-09-26] MEDS: THIAMINE HCL 100 MG TAB PO SCH (08:53)
[2016-09-26] MEDS: SODIUM CHLORIDE 0.9% FLUSH 5 ML FLUSH FLUSH SCH ×2 (08:53→20:47)
[2016-09-26 12:00] VITALS: BP 165/89; PULSE 57; RESP 18; TEMP 98; O2SAT 100
[2016-09-26] MEDS: clonazePAM 0.5 MG TAB PO SCH ×3 (12:00→20:45)
[2016-09-26] MEDS ORDERED: clonazePAM 0.5 MG TAB PO SCH (14:00)
[2016-09-26] MEDS: cefTRIAXone INJ 2,000 MG in SODIUM CHLORIDE 0.9% INJ 100 ML IV SCH (14:21)
[2016-09-26 16:00] VITALS: BP 150/86; PULSE 56; RESP 18; TEMP 97.7; O2SAT 100
[2016-09-26 20:00] VITALS: BP 142/89; PULSE 58; RESP 18; TEMP 98.4; O2SAT 97
[2016-09-26] MEDS: QUEtiapine FUMARATE 25 MG TAB PO SCH (23:09)
[2016-09-27] VITALS: BP 131/80; PULSE 77; RESP 18; TEMP 98.2; O2SAT 97
[2016-09-27 04:00] VITALS: BP 110/64; PULSE 62; RESP 17; TEMP 97.4; O2SAT 98
[2016-09-27] MEDS: SODIUM CHLOR 0.9% 1000 ML INJ 1,000 ML IV SCH (04:45)
[2016-09-27] MEDS: KETOROLAC TROMETHAMINE 30 MG/ML (IVP) VIAL IV PUSH PRN ×3 (05:47→18:36)
[2016-09-27] MEDS: clonazePAM 0.5 MG TAB PO SCH ×3 (05:47→20:32)
[2016-09-27 08:00] VITALS: BP 114/70; PULSE 77; RESP 20; TEMP 97.4; O2SAT 96
--- NOTE | 2016-09-27 08:13 | HHI.PR ---
Subjective Remarks Follow-up for bacteremia, IV drug use, right upper extremity cellulitis. Ms. Arellano is doing well. She is sleeping this morning. Denies any acute concerns. No fever, chills. Objective Vitals Vital Signs Date Time Temp Pulse Resp B/P Pulse Ox O2 Delivery O2 Flow Rate FiO2 09/27/16 04:00 97.4 62 17 110/64 98 09/27/16 00:00 98.2 77 18 131/80 97 09/26/16 20:45 Room Air 09/26/16 20:00 98.4 58 18 142/89 97 09/26/16 16:00 97.7 56 18 150/86 100 09/26/16 12:00 98.0 57 18 165/89 100 I/O 09/26/16 09/26/16 09/26/16 09/27/16 09/27/16 09/27/16 07:00 15:00 23:00 07:00 15:00 23:00 Intake Total 1900 ml 960 ml 320 ml 220 ml Balance 1900 ml 960 ml 320 ml 220 ml Intake Oral 1900 ml 960 ml 320 ml 220 ml # Voids 5 2 3 2 # Bowel Movements 1 1 1 1 Result Diagram: 09/25/16 1136 09/25/16 1136 Imaging Last Impressions Upper Extremity Ultrasound 09/22/16 0000 Signed Impressions: Service Date/Time: Thursday, September 22, 2016 23:36 - CONCLUSION: 1. Nonocclusive thrombus in the cephalic vein. The remaining aspect of the right upper extremity venous system is patent. Mark Maddox MD Upper Extremity MRI 09/22/16 0000 Signed Impressions: Service Date/Time: Thursday, September 22, 2016 15:28 - CONCLUSION: 1. There is enhancement of a vein along the radial aspect of the forearm, likely the cephalic vein. Based on the appearance it is suspected to be thrombosed. This could be confirmed with upper extremity Doppler ultrasound. Given the surrounding edema it may represent a thrombophlebitis. 2. Relatively diffuse subcutaneous edema throughout the forearm most severe proximally. There is a focal area of edema and enhancement in the superficial subcutaneous tissues adjacent to the distal posterior ulna. This could represent a focal area of inflammation or infection. There are no findings to indicate osteomyelitis or deep abscess. Mark Connell MD Chest X-Ray 09/21/16 1244 Signed Impressions: Service Date/Time: Wednesday, September 21, 2016 13:24 - CONCLUSION: Normal examination. Zack Corea Jr., MD Objective Remarks GENERAL: Alert, Oriented x 3, NAD. SKIN: Warm and dry. HEAD: Normocephalic. EYES: No scleral icterus. No injection or drainage. NECK: Supple, trachea midline. No JVD or lymphadenopathy. CARDIOVASCULAR: Regular rate and rhythm without murmurs, gallops, or rubs. RESPIRATORY: Breath sounds equal bilaterally. No accessory muscle use. GASTROINTESTINAL: Abdomen soft, non-tender, nondistended. MUSCULOSKELETAL: No cyanosis, or edema. right forearm with thrombophlebitis, tender to palpation. BACK: Nontender without obvious deformity. No CVA tenderness. Procedures Echocardiogram 09/23/2016. - Left ventricle: The cavity size was normal. Wall thickness was normal. Systolic function was normal. The estimated ejection fraction was 55%. Wall motion was normal; there were no regional wall motion abnormalities. - Mitral valve: Mild regurgitation. - Tricuspid valve: Mild regurgitation. - Pulmonary arteries: PA peak pressure: 34mm Hg (S). A/P Problem List: (1) Abscess of right arm ICD Code: L02.413 Status: Acute (2) IV drug abuse ICD Code: F19.10 Status: Chronic (3) Failure of outpatient treatment ICD Code: Z78.9 Status: Acute Assessment and Plan Ms. Arellano is a 30 year old female with a history of IVDU who was sent from [facility] due to cellulitis, possible abscess on her right forearm. She used heroin few days prior to this admission. She was started on Clindamycin by ER two days prior to this admission and Bactrim, Keflex were added at [facility]. Due to treatment failure, patient was sent to the ED. Upon admission, Vanc and Zosyn were started by ID. - Group A streptococcus Bacteremia - Sepsis due to Group A Strep - Right arm phlebitis. - Currently on Ceftriaxone. Zosyn discontinued. - MRI shows no abscess. Clinically improving. Surgery consult if no improvement. - Continue Toradol. Pain is not well control. No narcotic pain medications for now. - Toradol until 09/29/2016 and after that we can use Naproxen. - IV drug use - Alcohol abuse - Continue [facility] protocol. - Patient has been counseled. Continue Folic acid, thiamine. - Ty Best after discharge. - Anxiety/Insomnia - continue 0.5mg clonazepam every 8 hours when necessary. - Continue Seroquel 25 mg by mouth daily at bedtime. Full code. SCDs. Malia Manzano DO Sep 27, 2016 8:13 am
[2016-09-27] MEDS: THIAMINE HCL 100 MG TAB PO SCH (08:47)
[2016-09-27] MEDS: POTASSIUM CHLORIDE 10 MEQ CONTROLLED RELEASE TAB PO SCH ×2 (08:47→20:32)
[2016-09-27] MEDS: MULTIVITAMIN TAB PO SCH (08:47)
[2016-09-27] MEDS: REMOVE OLD PATCH TD SCH (08:47)
[2016-09-27] MEDS: FOLIC ACID 1 MG TAB PO SCH (08:47)
[2016-09-27] MEDS: NICOTINE 21 MG/24 HR PATCH TD SCH (08:47)
[2016-09-27] MEDS: SODIUM CHLORIDE 0.9% FLUSH 5 ML FLUSH FLUSH SCH ×2 (08:48→20:33)
[2016-09-27 12:00] VITALS: BP 128/75; PULSE 61; RESP 20; TEMP 97.9; O2SAT 99
[2016-09-27] MEDS: cefTRIAXone INJ 2,000 MG in SODIUM CHLORIDE 0.9% INJ 100 ML IV SCH (14:27)
[2016-09-27 16:00] VITALS: BP 120/76; PULSE 81; RESP 20; TEMP 98.4; O2SAT 98
[2016-09-27 20:00] VITALS: BP 110/69; PULSE 75; RESP 18; TEMP 98; O2SAT 99
[2016-09-27] MEDS: QUEtiapine FUMARATE 25 MG TAB PO SCH (22:16)
[2016-09-28] VITALS: BP 109/73; PULSE 62; RESP 17; TEMP 98; O2SAT 98
[2016-09-28] MEDS: KETOROLAC TROMETHAMINE 30 MG/ML (IVP) VIAL IV PUSH PRN ×4 (00:53→18:18)
[2016-09-28 04:00] VITALS: BP 110/74; PULSE 64; RESP 18; TEMP 98.3; O2SAT 96
[2016-09-28] MEDS: SODIUM CHLOR 0.9% 1000 ML INJ 1,000 ML IV SCH ×3 (04:45→20:45)
[2016-09-28] MEDS: clonazePAM 0.5 MG TAB PO SCH (05:55)
[2016-09-28 08:00] VITALS: BP 124/79; PULSE 61; RESP 20; TEMP 98; O2SAT 99
[2016-09-28] MEDS: NICOTINE 21 MG/24 HR PATCH TD SCH (08:20)
[2016-09-28] MEDS: POTASSIUM CHLORIDE 10 MEQ CONTROLLED RELEASE TAB PO SCH ×2 (08:21→21:34)
[2016-09-28] MEDS: FOLIC ACID 1 MG TAB PO SCH (08:21)
[2016-09-28] MEDS: REMOVE OLD PATCH TD SCH (08:21)
[2016-09-28] MEDS: MULTIVITAMIN TAB PO SCH (08:21)
[2016-09-28] MEDS: THIAMINE HCL 100 MG TAB PO SCH (08:21)
[2016-09-28] MEDS: SODIUM CHLORIDE 0.9% FLUSH 5 ML FLUSH FLUSH SCH ×2 (09:00→21:35)
[2016-09-28 09:03] LABS: AUTOMATED NEUTROPHIL # 5.1 TH/MM3 (1.8-7.7); BASOPHIL % 0.3 % (0.0-2.0); EOSINOPHIL # 0.3 TH/MM3 (0-0.4); EOSINOPHIL % 2.5 % (0.0-4.0); HEMATOCRIT 40.7 % (35.0-46.0); HEMO FLAGS DIFF FINAL; LYMPH % 44.3 % (9.0-44.0); LYMPHOCYTE # 4.7 TH/MM3 (1.0-4.8); MEAN CELL VOLUME 85.6 FL (80.0-100.0); MEAN CORPUSCULAR HEMOGLOBIN 28.3 PG (27.0-34.0); MEAN CORPUSCULAR HGB CONC 33.1 % (32.0-36.0); MONO % 4.8 % (0.0-8.0); NEUT % 48.1 % (16.0-70.0); PLATELET COUNT 416 TH/MM3 (150-450); RED BLOOD COUNT 4.75 MIL/MM3 (4.00-5.30); RED CELL DISTRIBUTION WIDTH 15.9 % (11.6-17.2); WHITE BLOOD COUNT 10.7 TH/MM3 (4.0-11.0)
[2016-09-28 09:31] LABS: BICARBONATE 23.7 MEQ/L (21.0-32.0); POTASSIUM 3.9 MEQ/L (3.5-5.1)
--- NOTE | 2016-09-28 10:56 | HHI.PR ---
Subjective Remarks Follow-up for bacteremia, IV drug use, right upper extremity cellulitis. Patient is currently doing well. No fever or chills. She still complains of right upper extremity pain. Inquires about going home. Objective Vitals Vital Signs Date Time Temp Pulse Resp B/P Pulse Ox O2 Delivery O2 Flow Rate FiO2 09/28/16 08:00 98.0 61 20 124/79 99 09/28/16 04:00 98.3 64 18 110/74 96 09/28/16 00:00 98.0 62 17 109/73 98 09/27/16 20:30 Room Air 09/27/16 20:00 98.0 75 18 110/69 99 09/27/16 16:00 98.4 81 20 120/76 98 09/27/16 12:00 97.9 61 20 128/75 99 I/O 09/27/16 09/27/16 09/27/16 09/28/16 09/28/16 09/28/16 07:00 15:00 23:00 07:00 15:00 23:00 Intake Total 220 ml 240 ml 360 ml 240 ml Balance 220 ml 240 ml 360 ml 240 ml Intake Oral 220 ml 240 ml 360 ml 240 ml # Voids 2 0 3 3 # Bowel Movements 1 1 Result Diagram: 09/28/16 0735 09/28/16 0735 Imaging Last Impressions Upper Extremity Ultrasound 09/22/16 0000 Signed Impressions: Service Date/Time: Thursday, September 22, 2016 23:36 - CONCLUSION: 1. Nonocclusive thrombus in the cephalic vein. The remaining aspect of the right upper extremity venous system is patent. Mark Maddox MD Upper Extremity MRI 09/22/16 0000 Signed Impressions: Service Date/Time: Thursday, September 22, 2016 15:28 - CONCLUSION: 1. There is enhancement of a vein along the radial aspect of the forearm, likely the cephalic vein. Based on the appearance it is suspected to be thrombosed. This could be confirmed with upper extremity Doppler ultrasound. Given the surrounding edema it may represent a thrombophlebitis. 2. Relatively diffuse subcutaneous edema throughout the forearm most severe proximally. There is a focal area of edema and enhancement in the superficial subcutaneous tissues adjacent to the distal posterior ulna. This could represent a focal area of inflammation or infection. There are no findings to indicate osteomyelitis or deep abscess. Mark Connell MD Chest X-Ray 09/21/16 1244 Signed Impressions: Service Date/Time: Wednesday, September 21, 2016 13:24 - CONCLUSION: Normal examination. Zack Corea Jr., MD Objective Remarks GENERAL: Alert, Oriented x 3, NAD. SKIN: Warm and dry. HEAD: Normocephalic. EYES: No scleral icterus. No injection or drainage. NECK: Supple, trachea midline. No JVD or lymphadenopathy. CARDIOVASCULAR: Regular rate and rhythm without murmurs, gallops, or rubs. RESPIRATORY: Breath sounds equal bilaterally. No accessory muscle use. GASTROINTESTINAL: Abdomen soft, non-tender, nondistended. MUSCULOSKELETAL: No cyanosis, or edema. right forearm with thrombophlebitis, tender to palpation. BACK: Nontender without obvious deformity. No CVA tenderness. Procedures Echocardiogram 09/23/2016. - Left ventricle: The cavity size was normal. Wall thickness was normal. Systolic function was normal. The estimated ejection fraction was 55%. Wall motion was normal; there were no regional wall motion abnormalities. - Mitral valve: Mild regurgitation. - Tricuspid valve: Mild regurgitation. - Pulmonary arteries: PA peak pressure: 34mm Hg (S). A/P Problem List: (1) Abscess of right arm ICD Code: L02.413 Status: Acute (2) IV drug abuse ICD Code: F19.10 Status: Chronic (3) Failure of outpatient treatment ICD Code: Z78.9 Status: Acute Assessment and Plan Ms. Arellano is a 30 year old female with a history of IVDU who was sent from [facility] due to cellulitis, possible abscess on her right forearm. She used heroin few days prior to this admission. She was started on Clindamycin by ER two days prior to this admission and Bactrim, Keflex were added at [facility]. Due to treatment failure, patient was sent to the ED. Upon admission, Vanc and Zosyn were started by ID. - Group A streptococcus Bacteremia - Sepsis due to Group A Strep - Right arm phlebitis. - Currently on Ceftriaxone. - MRI shows no abscess. Clinically improving. Surgery consult if no improvement. - Continue Toradol. No narcotic pain medications for now. - Toradol until 09/29/2016 and after that we can use Naproxen. - Discussed with infectious disease. Current plan is to continue ceftriaxone until October 04, 2016 then Keflex 500 mg 4 times a day for 14 days. - IV drug use - Alcohol abuse - Continue [facility] protocol. - Patient has been counseled. Continue Folic acid, thiamine. - Ty Best after discharge. - Anxiety/Insomnia - continue 1 mg clonazepam every 8 hours when necessary. - Continue Seroquel 50 mg by mouth daily at bedtime. - When bed available, we can transfer patient to [facility]. Full code. SCDs. Malia Manzano DO Sep 28, 2016 10:56 am
[2016-09-28 12:00] VITALS: BP 125/74; PULSE 68; RESP 20; TEMP 98; O2SAT 100
--- NOTE | 2016-09-28 13:09 | HHI.IDPN ---
Subjective Subjective Remarks Notes reviewed No new complaint BC with GAS No new (+) BC Antibiotics Rocephin Past Medical History IVDU Allergies: Coded Allergies: No Known Allergies (Unverified , 09/19/16) Objective . Vital Signs Date Time Temp Pulse Resp B/P Pulse Ox O2 Delivery O2 Flow Rate FiO2 09/28/16 12:00 98.0 68 20 125/74 100 09/28/16 08:00 98.0 61 20 124/79 99 09/28/16 04:00 98.3 64 18 110/74 96 09/28/16 00:00 98.0 62 17 109/73 98 09/27/16 20:30 Room Air 09/27/16 20:00 98.0 75 18 110/69 99 09/27/16 16:00 98.4 81 20 120/76 98 09/27/16 09/27/16 09/28/16 15:00 23:00 07:00 Intake Total 240 ml 360 ml 240 ml Balance 240 ml 360 ml 240 ml Intake Oral 240 ml 360 ml 240 ml # Voids 0 3 3 # Bowel Movements 1 . Laboratory Tests Test 09/28/16 07:35 White Blood Count 10.7 TH/MM3 Red Blood Count 4.75 MIL/MM3 Hemoglobin 13.5 GM/DL Hematocrit 40.7 % Mean Corpuscular Volume 85.6 FL Mean Corpuscular Hemoglobin 28.3 PG Mean Corpuscular Hemoglobin 33.1 % Concent Red Cell Distribution Width 15.9 % Platelet Count 416 TH/MM3 Mean Platelet Volume 8.0 FL Neutrophils (%) (Auto) 48.1 % Lymphocytes (%) (Auto) 44.3 % Monocytes (%) (Auto) 4.8 % Eosinophils (%) (Auto) 2.5 % Basophils (%) (Auto) 0.3 % Neutrophils # (Auto) 5.1 TH/MM3 Lymphocytes # (Auto) 4.7 TH/MM3 Monocytes # (Auto) 0.5 TH/MM3 Eosinophils # (Auto) 0.3 TH/MM3 Basophils # (Auto) 0.0 TH/MM3 CBC Comment DIFF FINAL Differential Comment Laboratory Tests Test 09/28/16 07:35 Sodium Level 139 MEQ/L Potassium Level 3.9 MEQ/L Chloride Level 106 MEQ/L Carbon Dioxide Level 23.7 MEQ/L Anion Gap 9 MEQ/L Blood Urea Nitrogen 9 MG/DL Creatinine 0.87 MG/DL Estimat Glomerular Filtration 76 ML/MIN Rate Random Glucose 90 MG/DL Calcium Level 8.8 MG/DL Imaging Last Impressions Upper Extremity Ultrasound 09/22/16 0000 Signed Impressions: Service Date/Time: Thursday, September 22, 2016 23:36 - CONCLUSION: 1. Nonocclusive thrombus in the cephalic vein. The remaining aspect of the right upper extremity venous system is patent. Mark Maddox MD Upper Extremity MRI 09/22/16 0000 Signed Impressions: Service Date/Time: Thursday, September 22, 2016 15:28 - CONCLUSION: 1. There is enhancement of a vein along the radial aspect of the forearm, likely the cephalic vein. Based on the appearance it is suspected to be thrombosed. This could be confirmed with upper extremity Doppler ultrasound. Given the surrounding edema it may represent a thrombophlebitis. 2. Relatively diffuse subcutaneous edema throughout the forearm most severe proximally. There is a focal area of edema and enhancement in the superficial subcutaneous tissues adjacent to the distal posterior ulna. This could represent a focal area of inflammation or infection. There are no findings to indicate osteomyelitis or deep abscess. Mark Connell MD Chest X-Ray 09/21/16 1244 Signed Impressions: Service Date/Time: Wednesday, September 21, 2016 13:24 - CONCLUSION: Normal examination. Zack Corea Jr., MD Physical Exam GENERAL: awake and alert, NAD SKIN: Cool and dry. Has track hill both UE. Has excoriations in her face HEENT: [place] conjunctivae, no petechia or hemorrhage. No scleral icterus. Moist oral mucosa. NECK: Supple, nontender, no meningeal signs. CARDIOVASCULAR: Regular rate and rhythm without murmurs, gallops, or rubs. RESPIRATORY: Clear to auscultation. Breath sounds equal bilaterally. No wheezes , rales, or rhonchi. GASTROINTESTINAL: Abdomen soft, non-tender, nondistended. No hepato-splenomegaly , or palpable masses. No guarding. MUSCULOSKELETAL: RUE - area of erythema much improved, and area of indurated cord also better. No fluctuance NEUROLOGICAL: Non-focal PSYCH: Cooperative LINE: PIV with no evidence of infection Assessment & Plan Remarks IMPRESSION Sepsis present on admission, has GAS bacteremia - has fever, leukocytosis, tachycardia GAS sepsis - echo ok - no new (+) BC Cellulitis RUE, has for suppurative phlebitis due to IVDU RECOMMENDATION Continue Rocephin - would give at least 2 weeks, end date October 04, then po Keflex 500 QID x 14 more days Monitor progress Explained plan to patient Marva Canseco MD Sep 28, 2016 13:09
[2016-09-28] MEDS: clonazePAM 1 MG TAB PO SCH ×2 (14:54→21:34)
[2016-09-28] MEDS: cefTRIAXone INJ 2,000 MG in SODIUM CHLORIDE 0.9% INJ 100 ML IV SCH (14:55)
[2016-09-28 16:00] VITALS: BP 127/74; PULSE 67; RESP 22; TEMP 98.3; O2SAT 99
[2016-09-28 20:00] VITALS: BP 121/78; PULSE 70; RESP 20; TEMP 98.7; O2SAT 99
[2016-09-28] MEDS: QUEtiapine FUMARATE 25 MG TAB PO SCH (21:34)
[2016-09-29] VITALS: BP 115/57; PULSE 71; RESP 20; TEMP 98.3; O2SAT 98
[2016-09-29 04:00] VITALS: BP 117/64; PULSE 70; RESP 20; TEMP 98.4; O2SAT 98
[2016-09-29] MEDS: SODIUM CHLOR 0.9% 1000 ML INJ 1,000 ML IV SCH ×3 (04:45→20:45)
[2016-09-29] MEDS: clonazePAM 1 MG TAB PO SCH ×3 (06:19→21:04)
[2016-09-29] MEDS: KETOROLAC TROMETHAMINE 30 MG/ML (IVP) VIAL IV PUSH PRN ×2 (06:19→12:37)
[2016-09-29 08:00] VITALS: BP 113/57; PULSE 62; RESP 18; TEMP 97.6; O2SAT 99
[2016-09-29] MEDS: MULTIVITAMIN TAB PO SCH (08:45)
[2016-09-29] MEDS: FOLIC ACID 1 MG TAB PO SCH (08:45)
[2016-09-29] MEDS: POTASSIUM CHLORIDE 10 MEQ CONTROLLED RELEASE TAB PO SCH ×2 (08:45→21:04)
[2016-09-29] MEDS: THIAMINE HCL 100 MG TAB PO SCH (08:45)
[2016-09-29] MEDS: NICOTINE 21 MG/24 HR PATCH TD SCH (08:46)
[2016-09-29] MEDS: SODIUM CHLORIDE 0.9% FLUSH 5 ML FLUSH FLUSH SCH ×2 (08:46→21:04)
[2016-09-29] MEDS: REMOVE OLD PATCH TD SCH (08:46)
[2016-09-29 12:00] VITALS: BP 136/76; PULSE 82; RESP 20; TEMP 98.4; O2SAT 98
[2016-09-29 16:00] VITALS: BP 111/68; PULSE 78; RESP 20; TEMP 97.9; O2SAT 98
[2016-09-29] MEDS: cefTRIAXone INJ 2,000 MG in SODIUM CHLORIDE 0.9% INJ 100 ML IV SCH (16:13)
--- NOTE | 2016-09-29 18:27 | HHI.PR ---
Subjective Remarks Follow-up for bacteremia, IV drug use, right upper extremity cellulitis. Ms. Arellano reports no fever, chills. She reports for the first time a concern that has been present since 2013. She reports occasional sharp neuropathic pain on her face that started in 2013 and she attributes this to a nose injury. She also reports upper and lower back pain. Her facial pain is only relieved by opiates. Neuropathic pain medications such as Gabapentin does not help. Objective Vitals Vital Signs Date Time Temp Pulse Resp B/P Pulse Ox O2 Delivery O2 Flow Rate FiO2 09/29/16 16:00 97.9 78 20 111/68 98 09/29/16 16:00 97.9 78 20 111/68 98 09/29/16 12:00 98.4 82 20 136/76 98 09/29/16 10:56 Room Air 09/29/16 08:00 97.6 62 18 113/57 99 09/29/16 04:00 98.4 70 20 117/64 98 09/29/16 00:00 98.3 71 20 115/57 98 09/28/16 20:15 Room Air 09/28/16 20:00 98.7 70 20 121/78 99 I/O 09/28/16 09/28/16 09/28/16 09/29/16 09/29/16 09/29/16 07:00 15:00 23:00 07:00 15:00 23:00 Intake Total 240 ml 720 ml 360 ml 120 ml 840 ml Balance 240 ml 720 ml 360 ml 120 ml 840 ml Intake Oral 240 ml 720 ml 360 ml 120 ml 840 ml # Voids 3 2 4 1 3 # Bowel Movements 2 0 0 0 Result Diagram: 09/28/16 0735 09/28/16 0735 Imaging Last Impressions Upper Extremity Ultrasound 09/22/16 0000 Signed Impressions: Service Date/Time: Thursday, September 22, 2016 23:36 - CONCLUSION: 1. Nonocclusive thrombus in the cephalic vein. The remaining aspect of the right upper extremity venous system is patent. Mark Maddox MD Upper Extremity MRI 09/22/16 0000 Signed Impressions: Service Date/Time: Thursday, September 22, 2016 15:28 - CONCLUSION: 1. There is enhancement of a vein along the radial aspect of the forearm, likely the cephalic vein. Based on the appearance it is suspected to be thrombosed. This could be confirmed with upper extremity Doppler ultrasound. Given the surrounding edema it may represent a thrombophlebitis. 2. Relatively diffuse subcutaneous edema throughout the forearm most severe proximally. There is a focal area of edema and enhancement in the superficial subcutaneous tissues adjacent to the distal posterior ulna. This could represent a focal area of inflammation or infection. There are no findings to indicate osteomyelitis or deep abscess. Mark Connell MD Chest X-Ray 09/21/16 1244 Signed Impressions: Service Date/Time: Wednesday, September 21, 2016 13:24 - CONCLUSION: Normal examination. Zack Corea Jr., MD Objective Remarks GENERAL: Alert, Oriented x 3, NAD. SKIN: Warm and dry. HEAD: Normocephalic. EYES: No scleral icterus. No injection or drainage. NECK: Supple, trachea midline. No JVD or lymphadenopathy. CARDIOVASCULAR: Regular rate and rhythm without murmurs, gallops, or rubs. RESPIRATORY: Breath sounds equal bilaterally. No accessory muscle use. GASTROINTESTINAL: Abdomen soft, non-tender, nondistended. MUSCULOSKELETAL: No cyanosis, or edema. right forearm with thrombophlebitis, tender to palpation. BACK: Nontender without obvious deformity. No CVA tenderness. Procedures Echocardiogram 09/23/2016. - Left ventricle: The cavity size was normal. Wall thickness was normal. Systolic function was normal. The estimated ejection fraction was 55%. Wall motion was normal; there were no regional wall motion abnormalities. - Mitral valve: Mild regurgitation. - Tricuspid valve: Mild regurgitation. - Pulmonary arteries: PA peak pressure: 34mm Hg (S). A/P Problem List: (1) Abscess of right arm ICD Code: L02.413 Status: Acute (2) IV drug abuse ICD Code: F19.10 Status: Chronic (3) Failure of outpatient treatment ICD Code: Z78.9 Status: Acute Assessment and Plan Ms. Arellano is a 30 year old female with a history of IVDU who was sent from [facility] due to cellulitis, possible abscess on her right forearm. She used heroin few days prior to this admission. She was started on Clindamycin by ER two days prior to this admission and Bactrim, Keflex were added at [facility]. Due to treatment failure, patient was sent to the ED. Upon admission, Vanc and Zosyn were started by ID. - Group A streptococcus Bacteremia - Sepsis due to Group A Strep - Right arm phlebitis. - Currently on Ceftriaxone. - MRI shows no abscess. Clinically improving. Surgery consult if no improvement. - Continue Toradol. No narcotic pain medications for now. - Toradol until 09/29/2016 and after that we can use Naproxen. - Discussed with infectious disease. Current plan is to continue ceftriaxone until October 04, 2016 then Keflex 500 mg 4 times a day for 14 days. - Neuropathic facial pain - Although pain has been going on off and on, patient only mentioned it today. - I do not think opiate is the answer to this type of pain. - I will discuss with neurology to see if any further work up is warranted. I offered Gabapentin but patient reports it doesn't work. - IV drug use - Alcohol abuse - Continue [facility] protocol. - Patient has been counseled. Continue Folic acid, thiamine. - Ty Best after discharge. - Anxiety/Insomnia - continue 1 mg clonazepam every 8 hours when necessary. - Continue Seroquel 50 mg by mouth daily at bedtime. - When bed available, we can transfer patient to [facility]. Full code. SCDs. Malia Manzano DO Sep 29, 2016 18:27
[2016-09-29 20:12] VITALS: BP 115/58; PULSE 78; RESP 16; TEMP 98.4; O2SAT 98
[2016-09-29] MEDS: QUEtiapine FUMARATE 25 MG TAB PO SCH (21:03)
[2016-09-29] MEDS: ACETAMINOPHEN 325 MG TAB PO PRN (21:05)
[2016-09-30] VITALS: BP 113/77; PULSE 64; RESP 16; TEMP 97.5; O2SAT 98
[2016-09-30 04:00] VITALS: BP 104/63; PULSE 83; RESP 16; TEMP 97.8; O2SAT 98
[2016-09-30] MEDS: SODIUM CHLOR 0.9% 1000 ML INJ 1,000 ML IV SCH ×3 (04:06→20:45)
[2016-09-30] MEDS: clonazePAM 1 MG TAB PO SCH ×3 (05:41→21:16)
[2016-09-30] MEDS: ACETAMINOPHEN 325 MG TAB PO PRN ×2 (05:41→13:06)
[2016-09-30 08:00] VITALS: BP 118/65; PULSE 74; RESP 16; TEMP 98.1; O2SAT 96
[2016-09-30] MEDS: REMOVE OLD PATCH TD SCH (09:00)
[2016-09-30] MEDS: THIAMINE HCL 100 MG TAB PO SCH (09:12)
[2016-09-30] MEDS: FOLIC ACID 1 MG TAB PO SCH (09:12)
[2016-09-30] MEDS: POTASSIUM CHLORIDE 10 MEQ CONTROLLED RELEASE TAB PO SCH ×2 (09:12→21:15)
[2016-09-30] MEDS: MULTIVITAMIN TAB PO SCH (09:12)
[2016-09-30] MEDS: NICOTINE 21 MG/24 HR PATCH TD SCH (09:12)
[2016-09-30] MEDS: SODIUM CHLORIDE 0.9% FLUSH 5 ML FLUSH FLUSH SCH ×2 (09:13→21:16)
--- NOTE | 2016-09-30 11:07 | HHI.PR ---
Subjective Remarks Follow-up for bacteremia, IV drug use, right upper extremity cellulitis. Ms. Arellano is doing well. She reports facial neuropathic pain again. She again states only opioid helps with that kind of pain. No fever, chills. Objective Vitals Vital Signs Date Time Temp Pulse Resp B/P Pulse Ox O2 Delivery O2 Flow Rate FiO2 09/30/16 09:58 Room Air 09/30/16 08:00 98.1 74 16 118/65 96 09/30/16 00:00 97.5 64 16 113/77 98 09/29/16 20:12 98.4 78 16 115/58 98 09/29/16 20:00 Room Air 09/29/16 16:00 97.9 78 20 111/68 98 09/29/16 16:00 97.9 78 20 111/68 98 09/29/16 12:00 98.4 82 20 136/76 98 I/O 09/29/16 09/29/16 09/29/16 09/30/16 09/30/16 09/30/16 07:00 15:00 23:00 07:00 15:00 23:00 Intake Total 120 ml 840 ml 720 ml 0 ml Balance 120 ml 840 ml 720 ml 0 ml Intake Oral 120 ml 840 ml 720 ml 0 ml # Voids 1 3 4 2 # Bowel Movements 0 0 0 0 Result Diagram: 09/28/16 0735 09/28/16 0735 Imaging Last Impressions Upper Extremity Ultrasound 09/22/16 0000 Signed Impressions: Service Date/Time: Thursday, September 22, 2016 23:36 - CONCLUSION: 1. Nonocclusive thrombus in the cephalic vein. The remaining aspect of the right upper extremity venous system is patent. Mark Maddox MD Upper Extremity MRI 09/22/16 0000 Signed Impressions: Service Date/Time: Thursday, September 22, 2016 15:28 - CONCLUSION: 1. There is enhancement of a vein along the radial aspect of the forearm, likely the cephalic vein. Based on the appearance it is suspected to be thrombosed. This could be confirmed with upper extremity Doppler ultrasound. Given the surrounding edema it may represent a thrombophlebitis. 2. Relatively diffuse subcutaneous edema throughout the forearm most severe proximally. There is a focal area of edema and enhancement in the superficial subcutaneous tissues adjacent to the distal posterior ulna. This could represent a focal area of inflammation or infection. There are no findings to indicate osteomyelitis or deep abscess. Mark Connell MD Chest X-Ray 09/21/16 1244 Signed Impressions: Service Date/Time: Wednesday, September 21, 2016 13:24 - CONCLUSION: Normal examination. Zack Corea Jr., MD Objective Remarks GENERAL: Alert, Oriented x 3, NAD. SKIN: Warm and dry. HEAD: Normocephalic. EYES: No scleral icterus. No injection or drainage. NECK: Supple, trachea midline. No JVD or lymphadenopathy. CARDIOVASCULAR: Regular rate and rhythm without murmurs, gallops, or rubs. RESPIRATORY: Breath sounds equal bilaterally. No accessory muscle use. GASTROINTESTINAL: Abdomen soft, non-tender, nondistended. MUSCULOSKELETAL: No cyanosis, or edema. right forearm with thrombophlebitis, tender to palpation. BACK: Nontender without obvious deformity. No CVA tenderness. Procedures Echocardiogram 09/23/2016. - Left ventricle: The cavity size was normal. Wall thickness was normal. Systolic function was normal. The estimated ejection fraction was 55%. Wall motion was normal; there were no regional wall motion abnormalities. - Mitral valve: Mild regurgitation. - Tricuspid valve: Mild regurgitation. - Pulmonary arteries: PA peak pressure: 34mm Hg (S). A/P Problem List: (1) Abscess of right arm ICD Code: L02.413 Status: Acute (2) IV drug abuse ICD Code: F19.10 Status: Chronic (3) Failure of outpatient treatment ICD Code: Z78.9 Status: Acute Assessment and Plan Ms. Arellano is a 30 year old female with a history of IVDU who was sent from [facility] due to cellulitis, possible abscess on her right forearm. She used heroin few days prior to this admission. She was started on Clindamycin by ER two days prior to this admission and Bactrim, Keflex were added at [facility]. Due to treatment failure, patient was sent to the ED. Upon admission, Vanc and Zosyn were started by ID. - Group A streptococcus Bacteremia - Sepsis due to Group A Strep - Right arm phlebitis. - Currently on Ceftriaxone. - MRI shows no abscess. Clinically improving. Surgery consult if no improvement. - Continue Toradol. No narcotic pain medications for now. - Toradol until 09/29/2016. Continue Naproxen PRN. - Discussed with infectious disease. Current plan is to continue ceftriaxone until October 04, 2016 then Keflex 500 mg 4 times a day for 14 days. - Neuropathic facial pain - Although pain has been going on off and on, patient only mentioned it today. - I do not think opiate is the answer to this type of pain. - Will consult neurology for at least one time evaluation. - IV drug use - Alcohol abuse - Continue CINC protocol. - Patient has been counseled. Continue Folic acid, thiamine. - Ty Best after discharge. - Anxiety/Insomnia - continue 1 mg clonazepam every 8 hours when necessary. - Continue Seroquel 50 mg by mouth daily at bedtime. - When bed available, we can transfer patient to [facility]. Full code. SCDs. Malia Manzano DO Sep 30, 2016 11:07 am
[2016-09-30 12:00] VITALS: BP 114/66; PULSE 84; RESP 18; TEMP 98.2; O2SAT 100
[2016-09-30] MEDS: cefTRIAXone INJ 2,000 MG in SODIUM CHLORIDE 0.9% INJ 100 ML IV SCH (13:06)
[2016-09-30 15:56] VITALS: BP 129/76; PULSE 85; RESP 20; TEMP 97.5; O2SAT 99
[2016-09-30] MEDS ORDERED: NAPROXEN 250 MG TAB PO PRN (16:00)
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
--- NOTE | 2016-09-30 19:44 | RADRPT ---
EXAM DATE/TIME: 09/30/2016 19:03 [facility] COMPARISON: No previous studies available for comparison. INDICATIONS : Facial pain. MEDICAL HISTORY : None. SURGICAL HISTORY : None. ENCOUNTER: Subsequent ACUITY: 3 day PAIN SCORE: 6/10 LOCATION: face. TECHNIQUE: Multiplanar, multisequence MRI of the brain was performed without contrast. FINDINGS: CEREBRUM: The ventricles are normal for age. No evidence of midline shift, mass lesion, hemorrhage or acute in farction. No extraaxial fluid collections are seen. The pituitary gland and suprasellar cistern are normal in configuration. WHITE MATTER: No significant signal abnormalities are seen in the white matter. POSTERIOR FOSSA: The cerebellum and brainstem are intact. The 4th ventricle is midline. The cerebellopontine angle is unremarkable. The cerebellar tonsils are normal in position. DIFFUSION IMAGING: No focal areas of restricted diffusion are seen. No evidence of acute infarction. EXTRACRANIAL: The visualized portions of the orbits and paranasal sinuses are unremarkable. CONCLUSION: No acute disease, suspicious masses or destructive bone lesions. Cruz Vincent MD on September 30, 2016 at 19:41 Board Certified Radiologist. This report was verified electronically.
[2016-09-30 20:00] VITALS: BP 118/55; PULSE 82; RESP 18; TEMP 98; O2SAT 100
[2016-09-30] MEDS: QUEtiapine FUMARATE 25 MG TAB PO SCH (21:16)
[2016-09-30] MEDS: AMITRIPTYLINE HCL 25 MG TAB PO SCH (21:46)
[2016-10-01] VITALS (7 sets, daily range): BP systolic 101–143; BP diastolic 58–87; PULSE 69–140; RESP 16–18; TEMP 97.5–99.1; O2SAT 95–98
[2016-10-01] MEDS: SODIUM CHLOR 0.9% 1000 ML INJ 1,000 ML IV SCH ×3 (04:45→20:45)
[2016-10-01] MEDS: clonazePAM 1 MG TAB PO SCH ×3 (05:56→21:44)
[2016-10-01] MEDS: POTASSIUM CHLORIDE 10 MEQ CONTROLLED RELEASE TAB PO SCH ×2 (08:28→21:45)
[2016-10-01] MEDS: MULTIVITAMIN TAB PO SCH (08:28)
[2016-10-01] MEDS: PANTOPRAZOLE SOD 20 MG DELAYED RELEASE TAB PO SCH (08:28)
[2016-10-01] MEDS: FOLIC ACID 1 MG TAB PO SCH (08:29)
[2016-10-01] MEDS: NICOTINE 21 MG/24 HR PATCH TD SCH (08:29)
[2016-10-01] MEDS: REMOVE OLD PATCH TD SCH (08:29)
[2016-10-01] MEDS: THIAMINE HCL 100 MG TAB PO SCH (08:29)
[2016-10-01] MEDS: cefTRIAXone INJ 2,000 MG in SODIUM CHLORIDE 0.9% INJ 100 ML IV SCH (14:22)
--- NOTE | 2016-10-01 17:16 | HHI.PR ---
Subjective Remarks Follow-up for bacteremia, IV drug use, right upper extremity cellulitis. Patient is sleeping in bed comfortably. No acute concerns. Discussed with her about her unremarkable MRI brain. No fever, chills. Objective Vitals Vital Signs Date Time Temp Pulse Resp B/P Pulse Ox O2 Delivery O2 Flow Rate FiO2 10/01/16 12:00 98.1 74 16 128/78 96 10/01/16 08:00 Room Air 10/01/16 08:00 97.5 76 18 122/82 98 10/01/16 04:00 98.0 70 18 117/66 96 10/01/16 00:00 97.5 69 18 108/60 97 09/30/16 20:55 Room Air 09/30/16 20:00 98.0 82 18 118/55 100 I/O 09/30/16 09/30/16 09/30/16 10/01/16 10/01/16 10/01/16 07:00 15:00 23:00 07:00 15:00 23:00 Intake Total 0 ml 682 ml 240 ml Balance 0 ml 682 ml 240 ml Intake Oral 0 ml 680 ml 240 ml IV Total 2 ml # Voids 2 3 2 # Bowel Movements 0 0 2 Result Diagram: 09/28/16 0735 09/28/16 0735 Imaging Last Impressions Brain MRI 09/30/16 0000 Signed Impressions: Service Date/Time: Friday, September 30, 2016 19:03 - CONCLUSION: No acute disease, suspicious masses or destructive bone lesions. Cruz Vincent MD Upper Extremity Ultrasound 09/22/16 0000 Signed Impressions: Service Date/Time: Thursday, September 22, 2016 23:36 - CONCLUSION: 1. Nonocclusive thrombus in the cephalic vein. The remaining aspect of the right upper extremity venous system is patent. Mark Maddox MD Upper Extremity MRI 09/22/16 0000 Signed Impressions: Service Date/Time: Thursday, September 22, 2016 15:28 - CONCLUSION: 1. There is enhancement of a vein along the radial aspect of the forearm, likely the cephalic vein. Based on the appearance it is suspected to be thrombosed. This could be confirmed with upper extremity Doppler ultrasound. Given the surrounding edema it may represent a thrombophlebitis. 2. Relatively diffuse subcutaneous edema throughout the forearm most severe proximally. There is a focal area of edema and enhancement in the superficial subcutaneous tissues adjacent to the distal posterior ulna. This could represent a focal area of inflammation or infection. There are no findings to indicate osteomyelitis or deep abscess. Mark Connell MD Chest X-Ray 09/21/16 1244 Signed Impressions: Service Date/Time: Wednesday, September 21, 2016 13:24 - CONCLUSION: Normal examination. Zack Corea Jr., MD Objective Remarks GENERAL: Alert, Oriented x 3, NAD. SKIN: Warm and dry. HEAD: Normocephalic. EYES: No scleral icterus. No injection or drainage. NECK: Supple, trachea midline. No JVD or lymphadenopathy. CARDIOVASCULAR: Regular rate and rhythm without murmurs, gallops, or rubs. RESPIRATORY: Breath sounds equal bilaterally. No accessory muscle use. GASTROINTESTINAL: Abdomen soft, non-tender, nondistended. MUSCULOSKELETAL: No cyanosis, or edema. right forearm with thrombophlebitis, tender to palpation. BACK: Nontender without obvious deformity. No CVA tenderness. Procedures Echocardiogram 09/23/2016. - Left ventricle: The cavity size was normal. Wall thickness was normal. Systolic function was normal. The estimated ejection fraction was 55%. Wall motion was normal; there were no regional wall motion abnormalities. - Mitral valve: Mild regurgitation. - Tricuspid valve: Mild regurgitation. - Pulmonary arteries: PA peak pressure: 34mm Hg (S). A/P Problem List: (1) Abscess of right arm ICD Code: L02.413 Status: Acute (2) IV drug abuse ICD Code: F19.10 Status: Chronic (3) Failure of outpatient treatment ICD Code: Z78.9 Status: Acute Assessment and Plan Ms. Arellano is a 30 year old female with a history of IVDU who was sent from [facility] due to cellulitis, possible abscess on her right forearm. She used heroin few days prior to this admission. She was started on Clindamycin by ER two days prior to this admission and Bactrim, Keflex were added at [facility]. Due to treatment failure, patient was sent to the ED. Upon admission, Vanc and Zosyn were started by ID. - Group A streptococcus Bacteremia - Sepsis due to Group A Strep - Right arm phlebitis. - Currently on Ceftriaxone. - MRI shows no abscess. Clinically improving. Surgery consult if no improvement. - Continue Toradol. No narcotic pain medications for now. - Toradol until 09/29/2016. Continue Naproxen PRN. - Discussed with infectious disease. Current plan is to continue ceftriaxone until October 04, 2016 then Keflex 500 mg 4 times a day for 14 days. - Neuropathic facial pain - Although pain has been going on off and on, patient only mentioned it today. - I do not think opiate is the answer to this type of pain. - Appreciate neurology input. Patient is currently on amitriptyline - IV drug use - Alcohol abuse - Continue CIWA protocol. - Patient has been counseled. Continue Folic acid, thiamine. - Ty Best after discharge. - Anxiety/Insomnia - continue 1 mg clonazepam every 8 hours when necessary. - Continue Seroquel 50 mg by mouth daily at bedtime. Full code. SCDs. Discharge plan: Tentatively plan to discharge on 10/04/2016. Malia Manzano DO Oct 01, 2016 5:16 pm
[2016-10-01] MEDS: traMADol HCL 50 MG TAB PO PRN (18:25)
[2016-10-01] MEDS: SODIUM CHLORIDE 0.9% FLUSH 5 ML FLUSH FLUSH SCH (21:44)
[2016-10-01] MEDS: QUEtiapine FUMARATE 25 MG TAB PO SCH (21:44)
[2016-10-01] MEDS: AMITRIPTYLINE HCL 25 MG TAB PO SCH (21:45)
[2016-10-02 03:15] VITALS: BP 109/63; PULSE 102; RESP 16; TEMP 97.2; O2SAT 97
[2016-10-02] MEDS: traMADol HCL 50 MG TAB PO PRN ×2 (03:54→10:23)
[2016-10-02] MEDS: SODIUM CHLOR 0.9% 1000 ML INJ 1,000 ML IV SCH ×2 (04:45→08:45)
[2016-10-02] MEDS: clonazePAM 1 MG TAB PO SCH (05:46)
[2016-10-02 08:00] VITALS: BP 120/72; PULSE 105; RESP 20; TEMP 97.8; O2SAT 98
[2016-10-02] MEDS: MULTIVITAMIN TAB PO SCH (08:52)
[2016-10-02] MEDS: PANTOPRAZOLE SOD 20 MG DELAYED RELEASE TAB PO SCH (08:52)
[2016-10-02] MEDS: THIAMINE HCL 100 MG TAB PO SCH (08:52)
[2016-10-02] MEDS: FOLIC ACID 1 MG TAB PO SCH (08:52)
[2016-10-02] MEDS: POTASSIUM CHLORIDE 10 MEQ CONTROLLED RELEASE TAB PO SCH (08:52)
[2016-10-02] MEDS: NICOTINE 21 MG/24 HR PATCH TD SCH (08:54)
[2016-10-02] MEDS: REMOVE OLD PATCH TD SCH (08:54)
[2016-10-02] MEDS: SODIUM CHLORIDE 0.9% FLUSH 5 ML FLUSH FLUSH SCH (08:54)
--- NOTE | 2016-10-02 09:34 | HHI.IDPN ---
Subjective Subjective Remarks Notes reviewed Clinically has been stable from ID standpoint Has complaints about controlling her facial symptoms, feels like flashes on her face as well as her neck issues Neurology has seen patient Antibiotics Rossy Past Medical History IVDU Allergies: Coded Allergies: No Known Allergies (Unverified , 09/19/16) Objective . Vital Signs Date Time Temp Pulse Resp B/P Pulse Ox O2 Delivery O2 Flow Rate FiO2 10/02/16 03:15 97.2 102 16 109/63 97 10/01/16 23:30 97.8 140 16 116/58 96 10/01/16 21:30 Room Air 10/01/16 20:35 98.9 111 16 143/87 98 10/01/16 16:00 99.1 107 18 101/65 95 10/01/16 12:00 98.1 74 16 128/78 96 10/01/16 10/01/16 10/02/16 15:00 23:00 07:00 Intake Total 720 ml 722 ml 480 ml Balance 720 ml 722 ml 480 ml Intake Oral 720 ml 720 ml 480 ml IV Total 2 ml # Voids 3 4 3 # Bowel Movements 1 4 0 Imaging Last Impressions Upper Extremity Ultrasound 09/22/16 0000 Signed Impressions: Service Date/Time: Thursday, September 22, 2016 23:36 - CONCLUSION: 1. Nonocclusive thrombus in the cephalic vein. The remaining aspect of the right upper extremity venous system is patent. Mark Maddox MD Upper Extremity MRI 09/22/16 0000 Signed Impressions: Service Date/Time: Thursday, September 22, 2016 15:28 - CONCLUSION: 1. There is enhancement of a vein along the radial aspect of the forearm, likely the cephalic vein. Based on the appearance it is suspected to be thrombosed. This could be confirmed with upper extremity Doppler ultrasound. Given the surrounding edema it may represent a thrombophlebitis. 2. Relatively diffuse subcutaneous edema throughout the forearm most severe proximally. There is a focal area of edema and enhancement in the superficial subcutaneous tissues adjacent to the distal posterior ulna. This could represent a focal area of inflammation or infection. There are no findings to indicate osteomyelitis or deep abscess. Mark Connell MD Chest X-Ray 09/21/16 1244 Signed Impressions: Service Date/Time: Wednesday, September 21, 2016 13:24 - CONCLUSION: Normal examination. Zack Corea Jr., MD Physical Exam GENERAL: awake and alert, NAD SKIN: Cool and dry. NO rash HEENT: [place] conjunctivae, no petechia or hemorrhage. No scleral icterus. Moist oral mucosa. NECK: Supple, nontender, no meningeal signs. CARDIOVASCULAR: Regular rate and rhythm without murmurs, gallops, or rubs. RESPIRATORY: Clear to auscultation. Breath sounds equal bilaterally. No wheezes , rales, or rhonchi. GASTROINTESTINAL: Abdomen soft, non-tender, nondistended. No hepato-splenomegaly , or palpable masses. No guarding. MUSCULOSKELETAL: RUE - area of erythema has resolved, and the palpable cord has markedly improved. NEUROLOGICAL: Non-focal PSYCH: Cooperative LINE: PIV with no evidence of infection Assessment & Plan Remarks IMPRESSION Sepsis present on admission, has GAS bacteremia - has fever, leukocytosis, tachycardia GAS sepsis - echo ok - no new (+) BC Cellulitis RUE, has for suppurative phlebitis due to IVDU - markedly improved RECOMMENDATION Stop Rocephin Keflex 500 QID x 20 days - spoke with CM to help patient get her Rx D/W Dr Manzano Explained plan to patient Marva Canseco MD Oct 02, 2016 09:34
[2016-10-02] MEDS ORDERED: CEPH-460 PO (09:36)
[2016-10-02] MEDS ORDERED: CEPHALEXIN MONOHYDRATE 500 MG CAP PO SCH (10:00)
[2016-10-02] MEDS ORDERED: VITA100T2 PO (10:16)
[2016-10-02] MEDS ORDERED: CLON1 PO (10:16)
[2016-10-02] MEDS ORDERED: FOLI1TAB4 PO (10:16)
[2016-10-02] MEDS ORDERED: AMIT1TAB79 PO (10:16)
[2016-10-02] MEDS ORDERED: QUET1TAB7 PO (10:16)
--- NOTE | 2016-10-02 10:18 | HHI.DS ---
Discharge Summary Admission Date Sep 21, 2016 at 2:30 pm Discharge Date: Oct 02, 2016 Admitting Diagnosis right arm cellulitis. Right arm abscess. (1) Abscess of right arm ICD Code: L02.413 Diagnosis: Principal (2) IV drug abuse ICD Code: F19.10 Diagnosis: Principal (3) Failure of outpatient treatment ICD Code: Z78.9 Procedures Echocardiogram 09/23/2016. - Left ventricle: The cavity size was normal. Wall thickness was normal. Systolic function was normal. The estimated ejection fraction was 55%. Wall motion was normal; there were no regional wall motion abnormalities. - Mitral valve: Mild regurgitation. - Tricuspid valve: Mild regurgitation. - Pulmonary arteries: PA peak pressure: 34mm Hg (S). Brief History - From Admission The patient is a 30-year-old female with history of IV drug abuse who presented to the emergency department from [facility] for further evaluation and treatment of cellulitis and possible abscess of her right forearm. She admits to using heroin most recently on Wednesday. On the same day she voluntarily was admitted to [facility]. She was seen in the ER 2 days ago and given clindamycin for the cellulitis. Bactrim and Keflex were added at [facility]. She has not had any improvement in the pain or erythema of the right forearm. She states that she feels "terrible". She is currently going through withdrawal from opiates. CBC/BMP: 09/28/16 0735 09/28/16 0735 Imaging Last Impressions Brain MRI 09/30/16 0000 Signed Impressions: Service Date/Time: Friday, September 30, 2016 19:03 - CONCLUSION: No acute disease, suspicious masses or destructive bone lesions. Cruz Vincent MD Upper Extremity Ultrasound 09/22/16 0000 Signed Impressions: Service Date/Time: Thursday, September 22, 2016 23:36 - CONCLUSION: 1. Nonocclusive thrombus in the cephalic vein. The remaining aspect of the right upper extremity venous system is patent. Mark Maddox MD Upper Extremity MRI 09/22/16 0000 Signed Impressions: Service Date/Time: Thursday, September 22, 2016 15:28 - CONCLUSION: 1. There is enhancement of a vein along the radial aspect of the forearm, likely the cephalic vein. Based on the appearance it is suspected to be thrombosed. This could be confirmed with upper extremity Doppler ultrasound. Given the surrounding edema it may represent a thrombophlebitis. 2. Relatively diffuse subcutaneous edema throughout the forearm most severe proximally. There is a focal area of edema and enhancement in the superficial subcutaneous tissues adjacent to the distal posterior ulna. This could represent a focal area of inflammation or infection. There are no findings to indicate osteomyelitis or deep abscess. Mark Connell MD Chest X-Ray 09/21/16 1244 Signed Impressions: Service Date/Time: Wednesday, September 21, 2016 13:24 - CONCLUSION: Normal examination. Zack Corea Jr., MD PE at Discharge GENERAL: Alert, Oriented x 3, NAD. SKIN: Warm and dry. HEAD: Normocephalic. EYES: No scleral icterus. No injection or drainage. NECK: Supple, trachea midline. No JVD or lymphadenopathy. CARDIOVASCULAR: Regular rate and rhythm without murmurs, gallops, or rubs. RESPIRATORY: Breath sounds equal bilaterally. No accessory muscle use. GASTROINTESTINAL: Abdomen soft, non-tender, nondistended. MUSCULOSKELETAL: No cyanosis, or edema. right forearm with thrombophlebitis, tender to palpation. BACK: Nontender without obvious deformity. No CVA tenderness. Pt update on day of discharge Follow-up for bacteremia, IV drug use, right upper extremity cellulitis. Patient is doing well. No fever, chills. Hospital Course Ms. Arellano is a 30 year old female with a history of IVDU who was sent from [facility] due to cellulitis, possible abscess on her right forearm. She used heroin few days prior to this admission. She was started on Clindamycin by ER two days prior to this admission and Bactrim, Keflex were added at [facility]. Due to treatment failure, patient was sent to the ED. Upon admission, Vanc and Zosyn were started by ID. - Group A streptococcus Bacteremia - Sepsis due to Group A Strep - Right arm phlebitis. - Received Ceftriaxone. - MRI shows no abscess. Clinically improved with abx. - Received toradol for pain and later tramadol. - Discussed with infectious disease on 10/02/2016, Keflex 500mg QID X 20 days was recommended. - Neuropathic facial pain - Neurology recommended amitriptyline - Tramadol for pain. - IV drug use - Alcohol abuse - Continued [facility] protocol. - Patient has been counseled. Continue Folic acid, thiamine. - [facility] after discharge. - Anxiety/Insomnia - continued 1 mg clonazepam every 8 hours when necessary. - Continue Seroquel 50 mg by mouth daily at bedtime. Pt Condition on Discharge: Good Discharge Disposition: Discharge Home Discharge Time: > 30 minutes Discharge Instructions DIET: Follow Instructions for: As Tolerated, No Restrictions Activities you can perform: Regular-No Restrictions Follow up Referrals: PCP Follow-up - 1 Week New Medications: Cephalexin (Keflex) 500 Mg Cap 500 MG PO Q6H Infection Days 20 Ref 0 CAP Amitriptyline HCl (Elavil) 25 Mg Tab 25 MG PO HS Neuropathic pain #30 TAB Clonazepam (Klonopin) 1 Mg Tab 1 MG PO Q8HR Anxiety #21 TAB Folic Acid (Folate) 1 Mg Tab 1 MG PO DAILY Vitamin #30 TAB Quetiapine (Quetiapine) 25 Mg Tab 50 MG PO HS Anxiety/Insomnia #30 TAB Thiamine (Vitamin B-1) 100 Mg Tab 100 MG PO DAILY Vitamin #30 TAB Tramadol (Ultram) 50 Mg Tab 50 MG PO Q8H PRN PAIN SCALE 5 TO 10 #21 TAB Discontinued Medications: Clindamycin (Clindamycin) 150 Mg Cap 300 MG PO Q6H Infection Days 10 Ref 0 CAP Malia Manzano DO Oct 02, 2016 10:18
[2016-10-02] MEDS ORDERED: ULTR50TA5 PO (11:01)
[2016-10-04] MEDS ORDERED: CEPHALEXIN MONOHYDRATE 500 MG CAP PO SCH (18:00)
== END 2016-10-02 12:54 | disposition home or self-care (01) | DRG 872 ==
LOC: NEPC 12:24 → NEDA 14:30 → N04B 16:45
PROVIDERS: ADMIT Hospitalist; ATTEND Hospitalist
DX: A40.0 Sepsis due to streptococcus, group A (principal); I80.8 Phlebitis and thrombophlebitis of other sites; I82.611 Acute embolism and thrombosis of superficial veins of right upper extremity; F11.23 Opioid dependence with withdrawal; L03.113 Cellulitis of right upper limb; L02.413 Cutaneous abscess of right upper limb; F17.210 Nicotine dependence, cigarettes, uncomplicated; F14.10 Cocaine abuse, uncomplicated; F10.10 Alcohol abuse, uncomplicated; E87.6 Hypokalemia; I08.1 Rheumatic disorders of both mitral and tricuspid valves; F41.9 Anxiety disorder, unspecified; G47.00 Insomnia, unspecified; G51.9 Disorder of facial nerve, unspecified
CPT/HCPCS: 70551; 71010; 73220; 76882; 76937; 80048; 80053; 80202; 80307; 81001; 82565; 83605; 84703; 85025; 85610; 85730; 87040; 87086; 87186; 87205; 93005; 93306; 93971; 96374; A9579; J0696; J1885; J2060; J2405; J2543; J3370; J7030; J7040; J7050; Q0163